=== PATIENT | female | born 1965 | race Caucasian/White ===

== ENCOUNTER 2016-11-09 07:45 | Inpatient (IN) | payer MEDICAID ==
[~2016-11-09] VITALS: Ht 165.1 cm; Wt 89.8 kg
[~2016-11-09 07:45] MED LIST: CIPR-211 PO; DIPH25CA83 PO; FENO145T PO; FURO-149 PO; GLU500 PO; IBUP-1517 PO; INSU100V26; INSU100V9 SQ; LEVO75TA7 PO; LISI-600 PO; METO-290 PO; METR500T PO; SYN75 PO; ZESTRIL PO
[2016-11-09 07:53] VITALS: BP 159/85; PULSE 77; RESP 16; TEMP 98.7; O2SAT 96
--- NOTE | 2016-11-09 07:58 | NUR ---
AMBULATED TO BED 4
--- NOTE | 2016-11-09 07:58 | NUR ---
Pt report received from TRANG Allen. Pt here with c/o lower abd pain x 3 weeks for diverticulitis. Pain more severe this AM. Pt seen 3 weeks ago and received antibiotics that she just finished.
--- NOTE | 2016-11-09 08:05 | NUR ---
Dr. Steven at bedside to assess pt.
[2016-11-09] MEDS ORDERED: NACL 0.9% 1,000 ML IV ONE (08:07)
--- NOTE | 2016-11-09 08:15 | NUR ---
# 22 gauge angiocath placed to LHA. Use of asceptic technique. Opsite placed over site. Blood return noted. Blood for lab drawn from site. Flushed with 10 cc of normal saline. No evidence of infiltration noted. Patient tolerated well.
--- NOTE | 2016-11-09 08:20 | NUR ---
Pt to CT via W/C
--- NOTE | 2016-11-09 08:30 | NUR ---
Pt returns from CT
[2016-11-09 08:53] LABS: BASOPHILS % (AUTO) 0.3 % (0.0-2.0); EOSINOPHILS # (AUTO) 0.1 K/uL (0.0-0.4); HEMATOCRIT 33.6 % (36-48); HEMOGLOBIN 11.2 g/dL (12.0-16.0); LYMPHOCYTES # (AUTO) 1.2 K/uL (1.0-5.5); LYMPHOCYTES % (AUTO) 8.9 % (20.5-51.5); MEAN CORPUSCULAR HEMOGLOBIN 26 pg (27-31); MEAN CORPUSCULAR HGB CONC 33 % (32-36); MEAN CORPUSCULAR VOLUME 79 fL (79.0-98.0); MONOCYTES # (AUTO) 0.8 K/uL (0.0-1.0); MONOCYTES % (AUTO) 5.7 % (1.7-9.3); NEUTROPHILS # (AUTO) 11.2 K/uL (1.8-7.7); NEUTROPHILS % (AUTO) 84.1 % (40.0-70.0); PLATELET COUNT (AUTO) 426 K/uL (130-430); RED BLOOD CELL COUNT(AUTO) 4.26 MIL/uL (4.2-6.2); RED CELL DISTRIBUTION WIDTH 14.6 % (9.0-15.0); WHITE BLOOD COUNT (AUTO) 13.3 K/uL (4.8-10.8)
[2016-11-09 08:54] LABS: BILIRUBIN,URINE NEGATIVE (NEGATIVE); BLOOD, URINE NEGATIVE (NEGATIVE); CLARITY/URINE SL HAZY (CLEAR); COLOR,URINE YELLOW (YELLOW); GLUCOSE,URINE TRACE (NEGATIVE); KETONES,URINE TRACE (NEGATIVE); LEUKOCYTE ESTERASE ,URINE NEGATIVE (NEGATIVE); NITRITE, URINE NEGATIVE (NEGATIVE); PROTEIN URINE 1+ (NEGATIVE); UROBILINOGEN,URINE 0.2 (0.2-1.0)
[2016-11-09 09:06] LABS: CALCIUM 9.2 mg/dL (8.4-11.0); CREATININE 0.65 mg/dL (0.55-1.30); POTASSIUM 3.3 mmol/L (3.5-5.1); PROTHROMBIN TIME 10.9 SECS (9.5-12.5)
[2016-11-09 09:08] LABS: ALBUMIN 3.1 g/dL (3.4-4.8); BACTERIA,URINE RARE /HPF (None Seen); MUCUS,URINE 1+ /LPF (None Seen); RBC,URINE NONE SEEN /HPF (0-3); TOTAL BILIRUBIN 0.4 mg/dL (0.0-1.0); TOTAL PROTEIN, SERUM 7.7 g/dL (6.4-8.3); WBC,URINE 0-3 /HPF (0-3)
[2016-11-09] MEDS ORDERED: ONDANSETRON HCL 4 MG/2 ML VIAL IVP ONE (09:30)
[2016-11-09] MEDS ORDERED: PIPERACILLIN/TAZO 3.375 GM in NS 50 ML IV ONE (09:30)
[2016-11-09] MEDS ORDERED: HYDROmorphone 1 MG INJ. 1 MG/ML AMPUL IVP ONE (09:30)
[2016-11-09] MEDS ORDERED: KETOROLAC TROMETHAMINE 15 MG VIAL IVP ONE (09:30)
--- NOTE | 2016-11-09 09:30 | NUR ---
Pt c/o abdominal pain 07/25. Dr. Steven notified, pt to be medicated.
[2016-11-09] MEDS ORDERED: FURO-149 PO (09:33)
[2016-11-09] MEDS ORDERED: METO-290 PO (09:33)
[2016-11-09] MEDS ORDERED: PRO40 PO (09:33)
[2016-11-09] MEDS ORDERED: METF1000 PO (09:33)
[2016-11-09] MEDS ORDERED: FENO48TA2 PO (09:33)
--- NOTE | 2016-11-09 09:34 | NUR ---
Medication reconciliation completed with information provided by PATIENT. Any prior medication reconciliation on file was reviewed and corrected.
[2016-11-09] MEDS ORDERED: PIPERACILLIN/TAZOBACTAM 3.375 GM/VIAL (ZOSYN) IV ONE (09:43)
--- NOTE | 2016-11-09 09:50 | NUR ---
Patient will be admitted to care of Dr. Forrest. Admitted to Tele unit. Will go to room 100B. Bedside report given to Lesia Jo RN.
--- NOTE | 2016-11-09 10:10 | NUR ---
ADMIT NOTE Received pt from ER to the floor with a diagnosis of Diverticulitis. Admission process initiated. patient oriented to pain management, safety and call light-teach back done.
--- NOTE | 2016-11-09 10:10 | NUR ---
ADMISSION NOTE Received patient from ER via gurney. Patient admitted with diagnosis of Diverticulitis. Patient is awake, alert, oriented X . Patient oriented to hospital room, call light, toileting, pain management and safety-teach back done. Patient informed that I will be her nurse and that their room number is 100B. Personal belongings checked and Belongings List documented. Call light within reach.
--- NOTE | 2016-11-09 10:26 | NUR ---
Consult Order received for a consult with Dr Morrison, spoke with Dr Morrison through medical staff due to phone issues. Will follow up as needed.
[2016-11-09 10:27] VITALS: BP 138/78; PULSE 69; RESP 16; TEMP 97.4; O2SAT 95
[2016-11-09 10:29] VITALS: BP 138/78; PULSE 69; RESP 16; TEMP 97.4; O2SAT 95
[2016-11-09] MEDS ORDERED: DEXTROSE 50% JECT 50 ML DISP.SYRIN IVP PRN (10:30)
[2016-11-09] MEDS ORDERED: MORPHINE 2 MG/ML INJ. SYRINGE IVP PRN (10:30)
[2016-11-09] MEDS ORDERED: ACETAMINOPHEN 325 MG TABLET PO PRN (10:30)
[2016-11-09] MEDS ORDERED: MORPHINE 4 MG/ML INJ. SYRINGE IVP PRN (10:30)
[2016-11-09] MEDS: D5NS 1,000 ML IV SCH (10:55)
[2016-11-09] MEDS ORDERED: PIPERACILLIN/TAZO 3.375/DEX-IS 50 ML IV ONE (11:00)
--- NOTE | 2016-11-09 11:36 | NUR ---
blood sugar: accu check done. 168 mg/dl. patient NPO withheld insulin. will monitor.
--- NOTE | 2016-11-09 13:30 | NUR ---
rounds: pt on bed. M.d. paged to change medication per patient request and waiting to call back.
--- NOTE | 2016-11-09 15:11 | NUR ---
rounds: pt on bed. no distress noted.
[2016-11-09 15:45] VITALS: BP 127/63; PULSE 77; RESP 19; TEMP 97.3; O2SAT 92
--- NOTE | 2016-11-09 15:47 | NUR ---
Luis Enrique called back: Informed about patient's pain med that she is resistant to dilaudid, morphine, fentanyl. Patient wants toradol, norco and motrin. Dr. Forrest said she cannot have oral pain meds due to diverticulitis. Dr. Forrest ordered dilaudid for pain meds. patient refused.
--- NOTE | 2016-11-09 17:06 | NUR ---
blood sugar: accu check done. no insulin needed per sliding scale.
--- NOTE | 2016-11-09 17:07 | NUR ---
pain med: patient states shes in pain but refused dilaudid.
--- NOTE | 2016-11-09 17:30 | NUR ---
Luis Enrique returned call: Informed Dr. Forrest patient refused Dilaudid and prefers Toradol for pain. Luis Enrique ordered Toradol 15mg every 6 hours as needed. Diet clear liquid diet.
[2016-11-09] MEDS ORDERED: KETOROLAC TROMETHAMINE 30 MG VIAL ONE (17:50)
[2016-11-09] MEDS: PIPERACILLIN/TAZO 3.375/DEX-IS 50 ML IV SCH (17:59)
--- NOTE | 2016-11-09 18:00 | NUR ---
rounds: pain meds given thru IVP. Antibiotic administered as scheduled.
--- NOTE | 2016-11-09 19:12 | NUR ---
Initial notes RECVD PT IN BED,A/A/X4 WITH FRIEND @ BEDSIDE.V/S 1151/76,99.3,101,19,94%RA.ALL EXTREMITIES ARE STRONG,BED REST.DISCUSSED PLAN OF CARE WITH PT AND VERBALIZED UNDERSTANDING.CALL LIGHT WITHIN REACH,WILL CONT TO MONITOR.
--- NOTE | 2016-11-09 19:30 | NUR ---
closing notes: pt on bed. complained of coldness and blanket provided. no distress noted. call light within reach. report given at bedside.
[2016-11-09] MEDS: LACTOBACILLUS RHAMNOSUS GG 1 CAP CAPSULE PO SCH (20:57)
[2016-11-09] MEDS: METOCLOPRAMIDE HCL 10 MG TABLET PO SCH (20:57)
--- NOTE | 2016-11-09 21:10 | NUR ---
ROUNDS PT IS SLEEPING @ THIS TIME.NO S/S OF PAIN AND NO SOB NOTED.CALL LIGHT WITHIN REACH,WILL CONT TO MONITOR.
--- NOTE | 2016-11-09 23:10 | NUR ---
ROUNDS PT IS SLEEPING COMFORTABLY.NO S/S OF PAIN AND NO RESPI DISTRESS NOTED.CALL LIGHT WITHIN REACH,WILL CONT TO MONITOR.
[2016-11-10] VITALS (7 sets, daily range): BP systolic 128–170; BP diastolic 59–87; PULSE 60–89; RESP 16–20; TEMP 97.4–98.8; O2SAT 90–95
[2016-11-10] MEDS: KETOROLAC TROMETHAMINE 15 MG VIAL IVP PRN ×4 (00:08→19:55)
[2016-11-10] MEDS: D5NS 1,000 ML IV SCH ×3 (00:10→18:18)
[2016-11-10] MEDS: PIPERACILLIN/TAZO 3.375/DEX-IS 50 ML IV SCH ×4 (00:26→18:17)
[2016-11-10] MEDS: INSULIN REGULAR, HUMAN 100 UNITS/ML, 10 ML VIAL (novoLIN R) SUBCUT PRN ×4 (00:28→18:39)
--- NOTE | 2016-11-10 01:10 | NUR ---
ROUNDS PT IS SLEEPING @ THIS TIME.NO C/OMPAIN AND NO RESPI DISTRESS NOTED.CALL LIGHT WITHIN REACH.WILL CONT TO MONITOR.
--- NOTE | 2016-11-10 03:10 | NUR ---
ROUNDS PT IS SLEEPING AT THIS TIME,NO C/O PAIN AND NO SOB NOTED.CALL LIGHT WITHIN REACH
[2016-11-10] MEDS: LEVOTHYROXINE SODIUM 0.075 MG TABLET PO SCH (06:23)
--- NOTE | 2016-11-10 07:02 | NUR ---
FINAL ROUNDS PT IS SLEEPING @ THIS TIME.NO C/O PAIN ADN NO RESPI DISTRES NOTED.V/S ARE WNL.ALL NEEDS MET AND NATICIPATED BY NOC NURSES.CALL LIGHT WITHIN REACH.WILL ENDORSED.
--- NOTE | 2016-11-10 07:25 | NUR ---
Rn Notes: patient is aaox4. afebrile. vss stable. lungs bilaterally clear. abdomen soft and non distended. has iv access on the left hand #22. D5Ns at 100cc/hr infusing on well. ambulates to the bathroom by himself. on room air. no complained of abdominal pain noted. call lights within reach. safety measures maintained. informed patient to call for assistance.
--- NOTE | 2016-11-10 09:20 | NUR ---
due medcation given as this time.
[2016-11-10] MEDS: METOCLOPRAMIDE HCL 10 MG TABLET PO SCH ×2 (09:32→21:31)
[2016-11-10] MEDS: LACTOBACILLUS RHAMNOSUS GG 1 CAP CAPSULE PO SCH ×2 (09:32→21:30)
[2016-11-10] MEDS: LISINOPRIL 20 MG TABLET PO SCH (09:32)
--- NOTE | 2016-11-10 11:34 | NUR ---
GI CONSULT Spoke with Francisca regarding request for consultation with Dr. Whalen ([phone]) for reason: diverticulitis.
[2016-11-10 11:50] LABS: BASOPHILS % (AUTO) 0.4 % (0.0-2.0); EOSINOPHILS # (AUTO) 0.2 K/uL (0.0-0.4); EOSINOPHILS % (AUTO) 3.1 % (0.0-4.0); HEMATOCRIT 30.2 % (36-48); HEMOGLOBIN 9.7 g/dL (12.0-16.0); LYMPHOCYTES # (AUTO) 1.2 K/uL (1.0-5.5); LYMPHOCYTES % (AUTO) 15.2 % (20.5-51.5); MEAN CORPUSCULAR HEMOGLOBIN 25 pg (27-31); MEAN CORPUSCULAR HGB CONC 32 % (32-36); MEAN CORPUSCULAR VOLUME 79 fL (79.0-98.0); MONOCYTES # (AUTO) 0.8 K/uL (0.0-1.0); MONOCYTES % (AUTO) 10.6 % (1.7-9.3); NEUTROPHILS # (AUTO) 5.4 K/uL (1.8-7.7); NEUTROPHILS % (AUTO) 70.7 % (40.0-70.0); PLATELET COUNT (AUTO) 389 K/uL (130-430); RED BLOOD CELL COUNT(AUTO) 3.81 MIL/uL (4.2-6.2); RED CELL DISTRIBUTION WIDTH 14.5 % (9.0-15.0); WHITE BLOOD COUNT (AUTO) 7.6 K/uL (4.8-10.8)
[2016-11-10 11:54] LABS: CALCIUM 8.8 mg/dL (8.4-11.0); CREATININE 0.61 mg/dL (0.55-1.30); POTASSIUM 3.4 mmol/L (3.5-5.1)
--- NOTE | 2016-11-10 11:57 | NUR ---
zozyn iv given. latest bs is 143mg/dl. no coverage given
[2016-11-10 12:01] LABS: ALBUMIN 2.7 g/dL (3.4-4.8); TOTAL BILIRUBIN 0.3 mg/dL (0.0-1.0); TOTAL PROTEIN, SERUM 6.9 g/dL (6.4-8.3)
--- NOTE | 2016-11-10 12:52 | NUR ---
dr parra called regarding ct of abdomen result informed the results. will come to see the patient.
--- NOTE | 2016-11-10 14:00 | NUR ---
stable. no pain noted. goes to the bathroom
--- NOTE | 2016-11-10 16:43 | NUR ---
patient is stable. watching tv. no pain nor distress noted.
--- NOTE | 2016-11-10 18:00 | NUR ---
latest bs is 176mg/dl. coverage given.
--- NOTE | 2016-11-10 19:25 | NUR ---
sbar report given to incoming nurse Liliane COSTELLO
--- NOTE | 2016-11-10 20:00 | NUR ---
INITIAL NOTES: PATIENT IN BED AWAKE ORIENTED X4,COMPLAINING OF ABDOMINAL PAIN FOR 2HRS. BP SLIGHTLY ELEVATED,EXPLAIN POSSIBLE DUE TO PAIN. IV SITE CLEAR,IVF INFUSING AT 100ML/HR. LUNGS CLEAR. ROOM AIR. OBESE. TOLERATING FLUIDS WELL.CALL LIGHT WITHIN REACH. BED IN LOW POSITION. FALL PRECAUTION EMPHASIZED. WILL MONITOR CLOSELY.
--- NOTE | 2016-11-10 20:10 | NUR ---
pain: complain of abdominal pain. med given. see mar.
--- NOTE | 2016-11-10 20:25 | NUR ---
PAGED PAGED LUCIAN MONROE AT [phone] SPOKE WITH YAYA.
--- NOTE | 2016-11-10 21:00 | NUR ---
DR. CHIRINOS ,NOTIFIED ABOUT PATIENT CONCERN ABOUT PAIN MED EFFECTIVENESS AND NOT ENOUGH, WITH ORDERS.
--- NOTE | 2016-11-10 22:00 | NUR ---
COMFORTABLE THIS TIME. NI DISTRESS.
[2016-11-11] VITALS (7 sets, daily range): BP systolic 132–175; BP diastolic 68–79; PULSE 60–68; RESP 17–20; TEMP 97–99.2; O2SAT 92–96
[2016-11-11] MEDS: PIPERACILLIN/TAZO 3.375/DEX-IS 50 ML IV SCH ×4 (00:35→17:52)
[2016-11-11] MEDS: INSULIN REGULAR, HUMAN 100 UNITS/ML, 10 ML VIAL (novoLIN R) SUBCUT PRN ×4 (00:39→17:31)
--- NOTE | 2016-11-11 00:40 | NUR ---
PAIN: PATIENT COMPLAIN OF ABDOMINAL PAIN/ LEVEL 6/10. NORCO 5/325MG PO GIVEN.
[2016-11-11] MEDS: HYDROcodone/ACETAMIN 5-325 MG TAB (NORCO/ VICODIN) PO PRN ×4 (00:42→20:50)
--- NOTE | 2016-11-11 02:05 | NUR ---
PATIENT RESTING QUITELY WITH EYES CLOSE. BREATHING PATTERN REGULAR. IV BAG CHANGED.
--- NOTE | 2016-11-11 04:10 | NUR ---
CONTINUE TO REST QUITELY. NO DISTRESS.
[2016-11-11] MEDS: D5NS 1,000 ML IV SCH ×2 (06:30→11:08)
--- NOTE | 2016-11-11 06:40 | NUR ---
BLOOD SUGAR 172MG/DL.COVERED W/ 2 UNITS REGULAR INSULIN. COMPLAIN OF ABDOMINAL PAIN. NORCO PO GIVEN. ASSISTED TO BATHROOM TO VOID WITH NO PROBLEM.
[2016-11-11] MEDS: LEVOTHYROXINE SODIUM 0.075 MG TABLET PO SCH (07:32)
--- NOTE | 2016-11-11 07:45 | NUR ---
Initial Note Received pt in bed, no s/s of distress or sob noted, pt has no c/o pain at this time, pt in stable condition, pt aaox4, verbal, iv catheter patent, no signs of infection or infiltration noted. Bed at lowest position, call light within reach, will continue to monitor pt for any changes. Fall precautions in place. Addendum: 11/11/16 at 0946 by Jenni Driver RN pt has pain 2/10 but tolerable at this time
[2016-11-11] MEDS: METOCLOPRAMIDE HCL 10 MG TABLET PO SCH ×2 (08:15→20:47)
[2016-11-11] MEDS: LISINOPRIL 20 MG TABLET PO SCH (08:15)
[2016-11-11] MEDS: LACTOBACILLUS RHAMNOSUS GG 1 CAP CAPSULE PO SCH ×2 (08:15→20:47)
[2016-11-11] MEDS: KETOROLAC TROMETHAMINE 30 MG VIAL IVP PRN ×2 (10:27→19:42)
--- NOTE | 2016-11-11 10:55 | NUR ---
ROUNDS Pt in bed, no s/s of distress or sob noted, pt has no c/o pain at this time, pt in stable condition, pt resting comfortably, will continue to monitor pt for any changes.
[2016-11-11] MEDS ORDERED: COMMUNICATION ORDER XX ONE (12:15)
--- NOTE | 2016-11-11 14:05 | NUR ---
ROUNDS Pt in bed, no s/s of distress or sob noted, pt has pain in lower abd, will administer pain medication as ordered, pt in stable condition, will continue to monitor pt for any changes.
--- NOTE | 2016-11-11 18:25 | NUR ---
CLOSING NOTE Pt in bed, no s/s of distress or sob noted, pt has no c/o pain at this time, pt in stable condition, pt aaox4, verbal, iv catheter patent, no signs of infection or infiltration noted. Bed at lowest position, call light within reach, will endorse care of pt to incoming nurse. Fall precautions in place.
--- NOTE | 2016-11-11 19:00 | NUR ---
INITIAL NOTES RECVD PT IN BED,A/A/X4.V/S 159/79,98.0,68,18,95%RA.IV NOTED TO L HAND G22,NO INFILTRATE WUTHN GOOD BLOOD RETURN.ALL EXTREMITIES ARE STRONG,BRP.DISCUSSED PLAN OF CARE WITH PT AND VERBALIZED UNDERSTANDING.CALL LIGHT WITHIN REACH,WILL CONT TO MONITOR.
--- NOTE | 2016-11-11 21:00 | NUR ---
ROUNDS PT IS AWAKE WATCHING TV @ THIS TIME.NO C/O PAIN AND NO SOB NOTED.CALL LIGHT WITHIN REACH,WILL CONT TO MONITOR.
--- NOTE | 2016-11-11 23:00 | NUR ---
ROUNDS PT IS SLEEPING @ THIS TIME.NO S/S OF PAIN AND NO RESPI DISTRESS NOTED.CALL LIGHT WITHIN REACH,WILL CONT TO MONITOR.
[2016-11-12] MEDS: PIPERACILLIN/TAZO 3.375/DEX-IS 50 ML IV SCH ×5 (00:35→23:06)
[2016-11-12] MEDS: D5NS 1,000 ML IV SCH ×3 (00:39→17:28)
--- NOTE | 2016-11-12 01:00 | NUR ---
ROUNDS PT IS SLEEPING COMFORTABLY @ THIS TIME.NO S/S OF PAIN AND NO RESPI DISTRESS NOTED.CALL LIGHT WITHIN REACH,WILL CONT TO MONITOR.
[2016-11-12] MEDS: KETOROLAC TROMETHAMINE 30 MG VIAL IVP PRN ×4 (01:26→23:07)
[2016-11-12] MEDS: INSULIN REGULAR, HUMAN 100 UNITS/ML, 10 ML VIAL (novoLIN R) SUBCUT PRN ×4 (01:32→23:15)
--- NOTE | 2016-11-12 02:00 | NUR ---
ADMIN TORADOL FOR GENERALIZED PAIN PRN.WILL REASSESS AFTER 1HOUR.
--- NOTE | 2016-11-12 02:00 | NUR ---
ROUNDS PT IS SLEEPING COMFORTABLY @ THIS TIME.NO C/O PAIN AND NO RESPI DISTRESS NOTED.CALL LIGHT WITHIN REACH,WILL CONT TO MONITOR.
--- NOTE | 2016-11-12 04:00 | NUR ---
ROUNDS PT IS SLEEPING COMFORTABLY.NO S/S OF PAIN OR DISTRESS @ THIS TIME.CALL LIGHT WITHIN REACH,WILL CONT TO MONITOR.
[2016-11-12] MEDS: HYDROcodone/ACETAMIN 5-325 MG TAB (NORCO/ VICODIN) PO PRN ×3 (05:36→19:59)
[2016-11-12 06:03] VITALS: BP 157/68; PULSE 60; RESP 16; TEMP 97.2; O2SAT 93
[2016-11-12] MEDS: LEVOTHYROXINE SODIUM 0.075 MG TABLET PO SCH (06:10)
--- NOTE | 2016-11-12 07:00 | NUR ---
FINAL NOTES PT IS SLEEPING @ THIS TIME.NO C/O PAIN AND NO DISTRESS NOTED.V/S ARE WNL.ALL NEEDS MET AND ANTICIPATED BY NOC NURSES.CALL LIGHT WITHIN REACH,WILL CONT TO MONITOR.
[2016-11-12 07:33] VITALS: BP 170/76; PULSE 63; RESP 16; TEMP 98.3; O2SAT 94
--- NOTE | 2016-11-12 07:50 | NUR ---
INITIAL NOTES RECEIVED PATIENT ON BED ASLEEP.BREATHING EVEN AND UNLABORED.NO ACUTE DISTRESS.IVF INFUSING WELL;NO SIGNS AND SYMPTOMS OF INFILTRATION.SAFETY AND FALL PRECAUTIONS IN PLACE.CALL LIGHT WITHIN REACH
--- NOTE | 2016-11-12 08:12 | NUR ---
Consult was called Re : Diverticulitis spoke with Ashley from Dr Whalen exchange Dr Patel is radiation oncology nurse for Dr Whalen .
[2016-11-12] MEDS: METOCLOPRAMIDE HCL 10 MG TABLET PO SCH ×2 (08:37→20:08)
[2016-11-12] MEDS: LACTOBACILLUS RHAMNOSUS GG 1 CAP CAPSULE PO SCH ×2 (08:37→19:59)
[2016-11-12] MEDS: LISINOPRIL 20 MG TABLET PO SCH (08:38)
--- NOTE | 2016-11-12 09:22 | NUR ---
CM DC PLANNING: RE: TRANSFER [facility] C/T [facility] INTAKE: [phone]; S/W EMILY WHO IS NOT SURE WHY Pt IS BEING REFERRED IF THE LAST DOCUMENTED EMESIS WAS OVER 24 HOURS AGO (0025 ON 11/11) AND BECAUSE SHE NEEDS TO F/UP WITH INVERFORM MACHINE OPERATOR MD AT [facility]. PER THIS DONNA/LIEN ASSESSMENT, Pt COULD LIKELY HAVE INVERFORM MACHINE OPERATOR F/UP OUT-Pt SHE IS S/P HYSTERECTOMY (PER SW NOTE) AND HER CURRENT MEDICAL CONDITION IS VOMITING, HEMATASIS (question? related to oral chemo). THIS DONNA/LIEN REVIEWED with EMILY, LEVEL OF CARE/MED-SURG BED NEEDED as downgraded on 11/08/16, WHICH SOUNDED LIKE THERE MAY POSSIBLY BE ISO BED AVAILABLE ONCE NEED TO TRANSFER IS RE-CLARIFIED W/DR. WEST TODAY NOTED Pt HAD SEPTIC WORK-UP DONE ON 11/11/16, POSSIBLY DUE TO FEVER (T-MAX 101 AT 1843). Addendum: 11/12/16 at 0957 by Lien Quintana RN DISREGARD NOTE ABOVE; ENTERED INCORRECTLY ON THIS FILE; MEANT FOR ANOTHER Pt.
--- NOTE | 2016-11-12 09:25 | NUR ---
DISREGARD NOTE BELOW; BELONGS TO DIFFERENT Pt.
--- NOTE | 2016-11-12 10:55 | NUR ---
IV NOTES IV SITE LEAKING;CHECKED AND ASSESSED SITE;WITH SLIGHT SWELLING;NO REDNESS;NO COMPLAIN OF PAIN.REMOVED IV CATHETER;APPLIED PRESSURE DRESSING.RE-INSERTED TO THE SAME ARM REQUESTED BY PATIENT;SUCCESSFUL WITH SECOND ATTEMPT;WITH GOOD BLOOD RETURN;NO RESISTANCE WHEN FLUSHED WITH NORMAL SALINE.IVF CONTINUED;INFUSING WELL
[2016-11-12] MEDS: IBUPROFEN 400 MG TABLET PO PRN (11:41)
[2016-11-12 12:00] VITALS: BP 163/73; PULSE 103; RESP 21; TEMP 101.7; O2SAT 96
--- NOTE | 2016-11-12 13:00 | NUR ---
NOTES CHECKED PATIENT;NEEDS ATTENDED TO
--- NOTE | 2016-11-12 15:30 | NUR ---
NOTES CHECKED PATIENT.NO ACUTE DISTRESS
[2016-11-12 16:00] VITALS: BP 166/73; PULSE 74; RESP 21; TEMP 99.3
--- NOTE | 2016-11-12 18:30 | NUR ---
CLOSING NOTES PATIENT ON BED AWAKE WATCHING T.V.BREATHING EVEN AND UNLABORED.NO ACUTE DISTRESS.IVF INFUSING WELL;NO SIGNS AND SYMPTOMS OF INFILTRATION.SAFETY AND FALL PRECAUTIONS IN PLACE.CALL LIGHT WITHIN REACH.WILL ENDORSE TO NEXT SHIFT ACCORDINGLY
[2016-11-12 19:00] VITALS: BP 146/89; PULSE 73; RESP 18; TEMP 99.5; O2SAT 95
--- NOTE | 2016-11-12 19:00 | NUR ---
INITIAL NOTES RECVD PT IN BED,A/A/X4.V/S 149/59,99.5,79,18,94%RA.IV NOTED TO L HAND G22,NO INFILTRATE WITH GOOD BLOOD RETURN.ALL EXTREMITIES ARE STRONG,BRP.DISCUSSED PLAN OF CARE WITH PT AND VERBALIZED UNDERSTANDING.CALL LIGHT WITHIN REACH,WILL CONT TO MONITOR.
[2016-11-12] MEDS: METOCLOPRAMIDE HCL 10 MG/2 ML VIAL IVP PRN ×2 (19:59→20:01)
--- NOTE | 2016-11-12 20:15 | NUR ---
ADMIN NORCO FOR GEN PAIN.WILL REASSESS AFTER 1HOUR
--- NOTE | 2016-11-13 | NUR ---
ADMIN TORADOL FOR GEN PAIN,WILL REASSESS AFTER 1 HOUR.
[2016-11-13 00:06] VITALS: BP 171/69; PULSE 64; RESP 19; TEMP 96.7; O2SAT 91
[2016-11-13] MEDS: cloNIDine HCL 0.1 MG TABLET PO PRN (01:28)
[2016-11-13] MEDS: HYDROcodone/ACETAMIN 5-325 MG TAB (NORCO/ VICODIN) PO PRN ×5 (01:29→23:36)
--- NOTE | 2016-11-13 02:00 | NUR ---
ROUNDS PT IS SLEEPING @ THIS TIME.NO C/O PAIN AND NO SOB NOTED.CALL LIGHT WITHIN REACH,WILL CONT TO MONITOR.
--- NOTE | 2016-11-13 02:20 | NUR ---
ADMIN MOTRIN FOR 100.3 TEMP.PT REFUSED TYLENOL AND PREFER MOTRIN.WILL RECHECK TEMP AFTER 1 HOUR.
[2016-11-13] MEDS: IBUPROFEN 400 MG TABLET PO PRN (03:01)
--- NOTE | 2016-11-13 04:00 | NUR ---
ROUNDS PT IS SLEEPING @ THIS TIME.NO C/O PAIN AND NO SOB NOTED.CALL LIGHT WITHIN REACH,WILL CONT TO MONITOR.
[2016-11-13 04:09] VITALS: BP 155/72; PULSE 94; RESP 17; TEMP 100.3; O2SAT 93
[2016-11-13] MEDS: PIPERACILLIN/TAZO 3.375/DEX-IS 50 ML IV SCH ×4 (05:21→23:36)
[2016-11-13] MEDS: INSULIN REGULAR, HUMAN 100 UNITS/ML, 10 ML VIAL (novoLIN R) SUBCUT PRN ×2 (05:26→17:14)
[2016-11-13] MEDS: D5NS 1,000 ML IV SCH ×3 (05:32→20:17)
[2016-11-13] MEDS: LEVOTHYROXINE SODIUM 0.075 MG TABLET PO SCH (06:03)
[2016-11-13 06:53] LABS: BASOPHILS # (AUTO) 0.1 K/uL (0.0-0.2); BASOPHILS % (AUTO) 0.6 % (0.0-2.0); EOSINOPHILS % (AUTO) 0.2 % (0.0-4.0); HEMATOCRIT 28.6 % (36-48); HEMOGLOBIN 9.3 g/dL (12.0-16.0); LYMPHOCYTES # (AUTO) 0.6 K/uL (1.0-5.5); LYMPHOCYTES % (AUTO) 4.3 % (20.5-51.5); MEAN CORPUSCULAR HEMOGLOBIN 26 pg (27-31); MEAN CORPUSCULAR HGB CONC 33 % (32-36); MEAN CORPUSCULAR VOLUME 78 fL (79.0-98.0); MONOCYTES % (AUTO) 6.9 % (1.7-9.3); NEUTROPHILS # (AUTO) 12.5 K/uL (1.8-7.7); PLATELET COUNT (AUTO) 370 K/uL (130-430); RED BLOOD CELL COUNT(AUTO) 3.66 MIL/uL (4.2-6.2); RED CELL DISTRIBUTION WIDTH 14.5 % (9.0-15.0)
--- NOTE | 2016-11-13 06:59 | NUR ---
FINAL NOTES PT IS SLEEPING @ THIS TIME.NO C/O PAIN AND NO DISTRESS NOTED.V/S ARE WNL.ALL NEEDS MET AND ANTICIPATED BY NOC NURSES.CALL LIGHT WITHIN REACH,WILL ENDORES.
[2016-11-13 07:30] LABS: WHITE BLOOD COUNT (AUTO) 14.2 K/uL (4.8-10.8)
[2016-11-13] MEDS: KETOROLAC TROMETHAMINE 30 MG VIAL IVP PRN ×3 (07:39→20:09)
[2016-11-13 07:42] VITALS: BP 118/61; PULSE 74; RESP 18; TEMP 97; O2SAT 95
--- NOTE | 2016-11-13 07:47 | NUR ---
INITIAL NOTES RECEIVED PATIENT ON BED AWAKE COMPLAINING OF SEVERE PAIN TO ABDOMEN.BREATHING EVEN AND UNLABORED.IVF INFUSING WELL;SITE SLIGHTLY SWOLLEN;NO DISCOMFORT ON THE SITE;NO REDNESS BUT PATIENT REFUSED TO RE-INSERT IV CATH AT THIS TIME.SAFETY AND FALL PRECAUTIONS IN PLACE.CALL LIGHT WITHIN REACH
[2016-11-13] MEDS: LISINOPRIL 20 MG TABLET PO SCH (08:59)
[2016-11-13] MEDS: METOCLOPRAMIDE HCL 10 MG TABLET PO SCH ×2 (08:59→20:09)
[2016-11-13] MEDS: LACTOBACILLUS RHAMNOSUS GG 1 CAP CAPSULE PO SCH ×2 (09:00→20:09)
[2016-11-13] MEDS ORDERED: MAGNESIUM CITRATE 300 ML ORAL SOLUTION PO ONE (09:15)
[2016-11-13 10:13] LABS: ALBUMIN 2.4 g/dL (3.4-4.8); TOTAL BILIRUBIN 0.4 mg/dL (0.0-1.0)
--- NOTE | 2016-11-13 10:30 | NUR ---
NOTES CHECKED PATIENT;NO ACUTE DISTRESS.NEEDS ATTENDED TO
[2016-11-13] MEDS: NEOMYCIN SULFATE 500 MG TABLET PO SCH ×3 (11:39→23:35)
[2016-11-13 11:47] LABS: CALCIUM 8.6 mg/dL (8.4-11.0); CREATININE 0.76 mg/dL (0.55-1.30); TOTAL PROTEIN, SERUM 6.5 g/dL (6.4-8.3)
[2016-11-13 12:00] VITALS: BP 147/78; PULSE 68; RESP 21; TEMP 96.7; O2SAT 96
--- NOTE | 2016-11-13 12:22 | NUR ---
NOTES K LEVEL=2.7.CHECKED AND ASSESSED PATIENT;NO SIGNS AND SYMPTOMS OF HYPOKALEMIA.
[2016-11-13 12:23] LABS: POTASSIUM 2.9 mmol/L (3.5-5.1)
--- NOTE | 2016-11-13 15:10 | NUR ---
NOTES RECEIVED ORDER FROM DR. VASQUEZ FOR K-DUR 40 MEQ PO X1 AND KCL 40 MEQ IV X1,BMP IN AM;CARRIED OUT
[2016-11-13] MEDS ORDERED: KCL 40 mEq in 100 mL (PREMIX) 100 ML IV ONE (15:15)
[2016-11-13] MEDS ORDERED: POTASSIUM CHLORIDE 20 MEQ TAB.PRT.SR PO ONE (15:15)
[2016-11-13 16:00] VITALS: BP 143/90; PULSE 85; RESP 21; TEMP 99.4; O2SAT 93
--- NOTE | 2016-11-13 16:30 | NUR ---
NOTES IV SITE SWOLLEN WITH DISCOMFORTS;REMOVED IV CATHETER.RE-INSERTED IV CATHETER TO LEFT FOREARM;SUCCESSFUL WITH SECOND ATTEMPT;WITH GOOD BLOOD RETURN;PROCEDURE TOLERATED WELL
[2016-11-13 19:50] VITALS: BP 155/68; PULSE 85; RESP 20; TEMP 98.7; O2SAT 94
--- NOTE | 2016-11-13 19:50 | NUR ---
INITIAL NOTES; Pt is a/ox4, resting in bed. Vital signs 98.7,20, 85, 155/68,U2PAM=34% R/A. Pt denies any pain,sob,or any acute distress this time. Lung sounds clear throughout all lobes. Abdomen soft & distended, bs present. IV site of left f/a patent, no s/s any infiltration noted. K-Aron is infusing. IVF D5NS @ 100ml/hr. Jerson lower pedis present upon palp. All safety measures in place. Fall precaution in place. All safety measures in place. Discussed poc, NPO status after midnight for colon resection with anastomesis possible diverting ileostomy unknown schedule time for 11/14/16, all safety measures, or if experiencing chest pain, pain,sob, or any acute distress to use call light for assistance, pt verbalized understanding. Call light w/in reach. Continue to monitor pt.
--- NOTE | 2016-11-13 22:16 | NUR ---
ROUNDS; Pt is resting in bed. Pt denies any pain,sob,or any acute distress this time. IV site of left f/a patent, no s/s any infiltration noted. K-Aron completed. IVF D5NS @ 100ml/hr. All safety measures in place. Fall precaution in place. All safety measures in place. Call light w/in reach. Continue to monitor pt.
--- NOTE | 2016-11-13 23:35 | NUR ---
ROUNDS; PAIN MEDICATION ADMINISTERED Pt is c/o abdominal pain, gave [place] 5/325mg po for pain. IV site of left f/a patent, no s/s any infiltration noted. IVF D5NS @ 100ml/hr. All safety measures in place. Fall precaution in place. All safety measures in place. Call light w/in reach. Continue to monitor pt.
--- NOTE | 2016-11-13 23:55 | NUR ---
PAGED DR VASQUEZ ([facility] [phone]), LISA LEDEZMA.
--- NOTE | 2016-11-14 | NUR ---
NPO STATUS; KEEP PT NPO AFTER MIDNIGHT FOR COLON RESECTION W/ ANASTOMESIS POSSIBLE DIVERTING ILOEOSTOMY SURGERY -Reminded pt to be NPO after midnight and removed all food and fluid away from patient, pt verbalized understanding. IV site of left f/a patent, no s/s any infiltration noted. IVF D5NS @ 100ml/hr. All safety measures in place. Fall precaution in place. All safety measures in place. Call light w/in reach. Continue to monitor pt.
--- NOTE | 2016-11-14 00:26 | NUR ---
second page for Dr Henry, dialed . s/w Odin.
--- NOTE | 2016-11-14 00:35 | NUR ---
NOTIFIED AND ASKED DR. HENRY REGARDING PAIN MEDICATION -Notified Dr. Henry that pt is NPO now and can't get PO [place] and she usually takes Toradol IVP and [place] both for pain mgmt since pt will have surgery tomorrow and informed Dr. Henry that pt requested Demerol for pain mgmt, MD refused and won't prescribed this time. stated that it's okay to take [place] po for pain with sip of water. All safety measures in place. Call light w/in reach. Continue to monitor pt.
--- NOTE | 2016-11-14 00:36 | NUR ---
INFORMED PT THAT DR. VASQUEZ WON'T ORDER DEMEROL AND ORDERED TO HAVE NORCO WITH SIP OF WATER, PT VERBALIZED UNDERSTANDING.
[2016-11-14 01:30] VITALS: BP 136/63; PULSE 86; RESP 18; TEMP 97.8; O2SAT 92
--- NOTE | 2016-11-14 04:01 | NUR ---
ROUNDS; Pt is resting in bed. No s/s any pain,sob,or any acute distress noted. IV site of left f/a patent, no s/s any infiltration noted. IVF D5NS @ 100ml/hr. All safety measures in place. Fall precaution in place. All safety measures in place. Call light w/in reach. Continue to monitor pt.
[2016-11-14] MEDS: KETOROLAC TROMETHAMINE 30 MG VIAL IVP PRN ×2 (04:32→20:05)
[2016-11-14 04:36] VITALS: BP 168/89; PULSE 90; RESP 20; TEMP 98.6; O2SAT 93
[2016-11-14] MEDS: PIPERACILLIN/TAZO 3.375/DEX-IS 50 ML IV SCH ×3 (05:16→18:28)
[2016-11-14] MEDS: HYDROcodone/ACETAMIN 5-325 MG TAB (NORCO/ VICODIN) PO PRN ×3 (05:26→18:30)
--- NOTE | 2016-11-14 05:26 | NUR ---
ROUNDS; PAIN MEDICATION ADMINISTERED Pt is c/o abdominal pain, gave [place] with sip of water. IV site of left f/a patent, no s/s any infiltration noted. IVF D5NS @ 100ml/hr. All safety measures in place. Fall precaution in place. All safety measures in place. Call light w/in reach. Continue to monitor pt.
[2016-11-14] MEDS: NEOMYCIN SULFATE 500 MG TABLET PO SCH ×3 (05:29→18:00)
[2016-11-14] MEDS: LEVOTHYROXINE SODIUM 0.075 MG TABLET PO SCH (05:29)
--- NOTE | 2016-11-14 06:50 | NUR ---
CLOSING NOTES; Pt is resting in bed. Pt denies any pain,sob,or any acute distress this time. IV site of left f/a patent, no s/s any infiltration noted. IVF D5NS @ 100ml/hr. All safety measures in place. Fall precaution in place. All safety measures in place. Call light w/in reach.
[2016-11-14 07:40] VITALS: BP 144/71; PULSE 82; RESP 16; TEMP 96.9; O2SAT 92
--- NOTE | 2016-11-14 07:40 | NUR ---
INITIAL ROUNDS Received pt AAOx4, no s/s resp distress, no c/o pain or discomfort. Plan of care for the day reviewed with pt-pt verbalized her understanding of surgery today. IVF infusing well to left arm at ordered rate with no s/s infiltration to site. Pain management, disease process, pre-op education, skin and safety discussed-teach back done. Contact phone number explained, call light within reach.
[2016-11-14] MEDS: METOCLOPRAMIDE HCL 10 MG TABLET PO SCH ×2 (09:00→20:05)
[2016-11-14] MEDS: LISINOPRIL 20 MG TABLET PO SCH (09:00)
[2016-11-14] MEDS: LACTOBACILLUS RHAMNOSUS GG 1 CAP CAPSULE PO SCH (09:00)
--- NOTE | 2016-11-14 09:55 | NUR ---
ROUNDS/PAIN Pt c/o pain to low abd-pt given pain medication as ordered by MD. Pt repositioned herself for comfort. Needs met, call light within reach.
[2016-11-14 10:07] LABS: BASOPHILS % (AUTO) 0.4 % (0.0-2.0); EOSINOPHILS # (AUTO) 0.1 K/uL (0.0-0.4); EOSINOPHILS % (AUTO) 1.6 % (0.0-4.0); HEMATOCRIT 26.9 % (36-48); HEMOGLOBIN 8.6 g/dL (12.0-16.0); LYMPHOCYTES # (AUTO) 0.8 K/uL (1.0-5.5); MEAN CORPUSCULAR HEMOGLOBIN 25 pg (27-31); MEAN CORPUSCULAR HGB CONC 32 % (32-36); MEAN CORPUSCULAR VOLUME 78 fL (79.0-98.0); MONOCYTES # (AUTO) 0.6 K/uL (0.0-1.0); MONOCYTES % (AUTO) 7.7 % (1.7-9.3); NEUTROPHILS % (AUTO) 80.3 % (40.0-70.0); PLATELET COUNT (AUTO) 317 K/uL (130-430); RED BLOOD CELL COUNT(AUTO) 3.44 MIL/uL (4.2-6.2); RED CELL DISTRIBUTION WIDTH 14.4 % (9.0-15.0); WHITE BLOOD COUNT (AUTO) 7.5 K/uL (4.8-10.8)
[2016-11-14 10:16] LABS: CALCIUM 8.5 mg/dL (8.4-11.0); CREATININE 0.63 mg/dL (0.55-1.30)
[2016-11-14 10:21] LABS: ALBUMIN 2.2 g/dL (3.4-4.8); TOTAL BILIRUBIN 0.3 mg/dL (0.0-1.0); TOTAL PROTEIN, SERUM 6.1 g/dL (6.4-8.3)
[2016-11-14 10:24] LABS: POTASSIUM 2.9 mmol/L (3.5-5.1)
[2016-11-14] MEDS ORDERED: POTASSIUM CHLORIDE 40 MEQ in NS 250 ML IV ONE (10:45)
[2016-11-14] MEDS: D5NS 1,000 ML IV SCH ×2 (11:26→18:29)
[2016-11-14 11:39] VITALS: BP 106/49; PULSE 65; RESP 19; TEMP 98.3; O2SAT 92
--- NOTE | 2016-11-14 11:45 | NUR ---
CHG BATH GIVEN.
[2016-11-14 12:48] VITALS: Ht 165.1 cm; Wt 89.8 kg
--- NOTE | 2016-11-14 13:51 | NUR ---
CONS FOR DR MG PERKINS FOR DIVERTICULITIS
[2016-11-14] MEDS ORDERED: ONDANSETRON HCL 4 MG/2 ML VIAL IVP ONE (14:00)
[2016-11-14] MEDS ORDERED: LR 1,000 ML IV.SOLN IV ONE (14:00)
[2016-11-14] MEDS ORDERED: MIDAZOLAM HCL 5 MG/5 ML VIAL IVP ONE (14:00)
[2016-11-14] MEDS ORDERED: SEVOFLURANE 15 MIN GAS INH ONE (14:00)
[2016-11-14] MEDS ORDERED: PROPOFOL 200MG/ 20ML VIAL (DIPRIVAN) IV ONE (14:00)
[2016-11-14] MEDS ORDERED: MEPERIDINE HCL/PF 100 MG/ML AMP IM ONE (14:00)
--- NOTE | 2016-11-14 14:00 | NUR ---
TO OR Pt left floor via bed to OR in no distress. OR checklist completed, K-Aron infusing well to LFA at ordered rate with no s/s infiltration to site.
[2016-11-14 14:05] LABS: INR 1.2 (0.8-1.2); PROTHROMBIN TIME 13.1 SECS (9.5-12.5)
[2016-11-14] MEDS ORDERED: MEPERIDINE HCL/PF 50 MG/ML AMP ONE ×2 (14:34→16:44)
[2016-11-14] MEDS ORDERED: LR 1,000 ML IV SCH (15:22)
[2016-11-14] MEDS ORDERED: MEPERIDINE HCL/PF 25 MG/ML DISP.SYRIN IVP PRN (15:30)
[2016-11-14] MEDS ORDERED: MEPERIDINE HCL/PF 50 MG/ML AMP IVP PRN ×2 (15:30)
[2016-11-14] MEDS ORDERED: MEPERIDINE HCL/PF 100 MG/ML AMP IM PRN (16:00)
--- NOTE | 2016-11-14 17:01 | NUR ---
PT BACK FROM OR Received report from COMPLIANCE REVIEW SPECIALIST, pt AAOx4, no s/s resp distress, no c/o pain or discomfort. Pt with dressing to midline abd and to RLQ-noted KEY drain with light red drainage noted. Noted new colostomy to left abd, stoma pink, no drainage noted. Pt on LR at ordered rate to right wrist with no s/s infiltration to site. Pt's vital signs stable. BLE with SCDs in place. Pt's family at bedside. Call light within reach.
[2016-11-14 17:10] VITALS: BP 152/70; PULSE 75; RESP 19; TEMP 97.8; O2SAT 92
--- NOTE | 2016-11-14 18:45 | NUR ---
CLOSING NOTE Pt resting quietly in bed with no s/s resp distress, pain medication given for c/o pain. Pt given fresh cup of ice chips. IVF infusing well to right wrist at ordered rate with no s/s infiltration to site. Pt not given Insulin per sliding scale due to NPO status and D5NS IVF just restarted. Needs met, call light within reach.
[2016-11-14 19:20] VITALS: BP 162/75; PULSE 79; RESP 18; TEMP 97.3; O2SAT 92
--- NOTE | 2016-11-14 19:20 | NUR ---
INITIAL NOTES; INCENTIVE SPIROMETRY TEACHING -TEACHING PT HOW TO USE INCENTIVE SPIROMETRY 10X/HR WHILE AWAKE, PT DEMONSTRATING AND GOOD TEACHING BACK. PT STATED, '' I HAD USED THIS INCENTIVE SPIROMETRY BEFORE.'' Pt is a/ox4, resting in bed. Vital signs 97.3,18, 79, 162/75,T1BHI=83% R/A. Pt denies any pain,sob,or any acute distress this time. Lung sounds clear throughout all lobes. Abdomen soft & distended, bs present. IV site of wrist #18, patent, no s/s any infiltration noted. IVF D5NS @ 100ml/hr. Colostomy-left lower abdomen-no drainage noted. KEY x1 rt side of lower abomen-drains pink drainage. [place] cath w/ gravity drains yellow urine output. Jerson lower pedis present upon palp. SCD jerson lower extremities. Fall precaution in place. All safety measures in place. Discussed poc, all safety measures, or if experiencing chest pain, pain,sob, or any acute distress to use call light for assistance, pt verbalized understanding. Call light w/in reach. Continue to monitor pt.
--- NOTE | 2016-11-14 20:05 | NUR ---
PAIN MEDICATION ADMINISTERED -Pt is c/o abdominal pain, gave Toradol 30mg IVP. Call light /win reach. Continue to monitor pt.
[2016-11-15] MEDS: PIPERACILLIN/TAZO 3.375/DEX-IS 50 ML IV SCH ×5 (00:06→23:06)
[2016-11-15] MEDS: NEOMYCIN SULFATE 500 MG TABLET PO SCH ×5 (00:06→23:06)
[2016-11-15] MEDS: HYDROcodone/ACETAMIN 5-325 MG TAB (NORCO/ VICODIN) PO PRN ×3 (00:11→21:00)
--- NOTE | 2016-11-15 00:11 | NUR ---
ROUNDS; PAIN MEDICATION ADMINISTERED Pt is c/o abdominal pain, gave [place] 5-325 mg po with sips of water. IV site of left f/a patent, no s/s any infiltration noted. KEY X1 in place drains pink drainage. Colostomy in place -no drainage noted. IVF D5NS @ 100ml/hr. All safety measures in place. Fall precaution in place. All safety measures in place. Call light w/in reach. Continue to monitor pt.
[2016-11-15] MEDS: INSULIN REGULAR, HUMAN 100 UNITS/ML, 10 ML VIAL (novoLIN R) SUBCUT PRN ×2 (00:15→11:16)
[2016-11-15 00:52] VITALS: BP 156/78; PULSE 77; RESP 16; TEMP 98.4; O2SAT 92
--- NOTE | 2016-11-15 02:06 | NUR ---
ROUNDS; Pt is resting in bed. No s/s any pain or acute distress noted. All safety measures in place. Fall precaution in place. All safety measures in place. Call light w/in reach. Continue to monitor pt.
[2016-11-15] MEDS: KETOROLAC TROMETHAMINE 30 MG VIAL IVP PRN ×2 (02:33→08:36)
--- NOTE | 2016-11-15 02:33 | NUR ---
PAIN MEDICATION ADMINISTERED -Pt is c/o abdominal pain, gave Toradol 30mg IVP. Call light /win reach. Continue to monitor pt.
[2016-11-15 04:19] VITALS: BP 152/74; PULSE 88; RESP 16; TEMP 98.2; O2SAT 93
[2016-11-15] MEDS: D5NS 1,000 ML IV SCH ×3 (06:04→20:59)
[2016-11-15] MEDS: LEVOTHYROXINE SODIUM 0.075 MG TABLET PO SCH (06:07)
--- NOTE | 2016-11-15 06:59 | NUR ---
CLOSING NOTES; Pt is resting in bed. Pt denies any pain,sob,or any acute distress this time. Colostomy-pink moist round,no drainage in place of left side of lower abdomen. KEY x1 drains pink output 55ml entire shift. IV site of left f/a patent, no s/s any infiltration noted. IVF D5NS @ 100ml/hr. Fall precaution in place. All safety measures in place. Call light w/in reach.
--- NOTE | 2016-11-15 07:45 | NUR ---
AM ROUNDS PATIENT RESTING IN BED, AWAKE, ALERT AND ORIENTED X4, STATES MILD PAIN LEVEL AT THIS TIME, EDUCATED THE PATIENT ON PAIN MANAGEMENT AT THIS TIME, PATIENT VERBALIZED UNDERSTANDING, ASSESSMENT COMPLETE, LEFT ABDOMEN HAS COLOSTOMY WITH NO DRAINAGE, RIGHT ABDOMEN KEY DRAIN WITH MINIMAL DRAINAGE AT THIS TIME, WILL CONTINUE TO MONITOR, EDUCATED THE PATIENT DOWEL SETTING MACHINE OPERATOR LIGHT SYSTEM AND TO CALL FOR ANY ASSISTANCE, PATIENT VERBALIZED UNDERSTANDING AT THIS TIME, CALL LIGHT PLACED IN THE PATIENT'S HAND, TWO SIDE RAILS UP, PATIENT IS ON A NON ALARM BED, WILL ENCOURAGE THE PATIENT TO WALK AND WILL EVALUATE GAIT, NO OTHER NEEDS AT THIS TIME, BED IN LOWEST POSITION, FALL PRECAUTIONS IN PLACE.
[2016-11-15 07:47] LABS: BASOPHILS % (AUTO) 0.3 % (0.0-2.0); EOSINOPHILS # (AUTO) 0.2 K/uL (0.0-0.4); EOSINOPHILS % (AUTO) 2.6 % (0.0-4.0); HEMATOCRIT 26.8 % (36-48); HEMOGLOBIN 8.6 g/dL (12.0-16.0); LYMPHOCYTES # (AUTO) 1.1 K/uL (1.0-5.5); LYMPHOCYTES % (AUTO) 13.4 % (20.5-51.5); MEAN CORPUSCULAR HEMOGLOBIN 26 pg (27-31); MEAN CORPUSCULAR HGB CONC 32 % (32-36); MEAN CORPUSCULAR VOLUME 79 fL (79.0-98.0); MONOCYTES # (AUTO) 0.5 K/uL (0.0-1.0); MONOCYTES % (AUTO) 6.7 % (1.7-9.3); NEUTROPHILS # (AUTO) 6.3 K/uL (1.8-7.7); PLATELET COUNT (AUTO) 298 K/uL (130-430); RED BLOOD CELL COUNT(AUTO) 3.38 MIL/uL (4.2-6.2); RED CELL DISTRIBUTION WIDTH 14.8 % (9.0-15.0); WHITE BLOOD COUNT (AUTO) 8.1 K/uL (4.8-10.8)
[2016-11-15 08:02] LABS: CALCIUM 8.1 mg/dL (8.4-11.0); CREATININE 0.56 mg/dL (0.55-1.30); POTASSIUM 3.1 mmol/L (3.5-5.1); TOTAL BILIRUBIN 0.2 mg/dL (0.0-1.0); TOTAL PROTEIN, SERUM 5.3 g/dL (6.4-8.3)
[2016-11-15] MEDS: METOCLOPRAMIDE HCL 10 MG TABLET PO SCH ×2 (08:35→21:00)
[2016-11-15] MEDS: LISINOPRIL 20 MG TABLET PO SCH (08:35)
--- NOTE | 2016-11-15 08:36 | NUR ---
RN ROUNDS/PAIN MEDICATION PATIENT RESTING IN BED COMPLAINING OF SEVERE PAIN AT THIS TIME, EDUCATED THE PATIENT ON PAIN MEDICATION AND POTENTIAL SIDE EFFECTS, PATIENT VERBALIZED UNDERSTANDING AND TOLERATED WELL AT THIS TIME, NO OTHER NEEDS AT THIS TIME, BED IN LOWEST POSITION, TWO SIDE RAILS UP, FALL PRECAUTIONS IN PLACE, CALL LIGHT NEXT TO THE PATIENT'S HAND.
[2016-11-15] MEDS ORDERED: POTASSIUM CHLORIDE 40 MEQ in NS 250 ML IV ONE (09:45)
[2016-11-15 10:51] VITALS: BP 165/85; PULSE 80; RESP 18; TEMP 97.9; O2SAT 94
--- NOTE | 2016-11-15 11:20 | NUR ---
RN ROUNDS PATIENT RESTING IN BED, AWAKE, DENIES PAIN AT THIS TIME, EDUCATED THE PATIENT ON MEDICATIONS AND POTASSIUM REPLACEMENT AND POTENTIAL SIDE EFFECTS, PATIENT VERBALIZED UNDERSTANDING AT THIS TIME, TOLERATED WELL, BLOOD GLUCOSE CHECK AND INSULIN ADMINISTRATION COMPLETE PER MD ORDERS, NO OTHER NEEDS AT THIS TIME, BED IN LOWEST POSITION, TWO SIDE RAILS UP, FALL PRECAUTIONS IN PLACE, CALL LIGHT NEXT TO THE PATIENT'S HAND, PATIENT STATES SHE WILL HAVE PAIN MEDICATION PRIOR TO PHYSICAL THERAPY, WILL FOLLOW UP.
[2016-11-15 12:43] VITALS: BP 155/89; PULSE 80; RESP 17; TEMP 97.9; O2SAT 91
--- NOTE | 2016-11-15 13:07 | NUR ---
RN ROUNDS PATIENT RESTING IN BED, EYES CLOSED, BREATHING IS EVEN AND UNLABORED, NO SIGNS OF DISTRESS AT THIS TIME, BED IN LOWEST POSITION, TWO SIDE RAILS UP, CALL LIGHT NEXT TO THE PATIENT'S HAND, FALL PRECAUTIONS IN PLACE.
[2016-11-15] MEDS: HYDROmorphone 2 MG/ML VIAL IVP PRN ×2 (14:52→23:06)
--- NOTE | 2016-11-15 14:52 | NUR ---
RN ROUNDS PATIENT RESTING IN BED, COMPLAINING OF PAIN, EDUCATED THE PATIENT ON MEDICATION AND POTENTIAL SIDE EFFECTS, PATIENT VERBALIZED UNDERSTANDING AND TOLERATED WELL, NO OTHER NEEDS AT THIS TIME, BED IN LOWEST POSITION, TWO SIDE RAILS UP, CALL LIGHT PLACED IN THE PATIENT'S HAND, FALL PRECAUTIONS IN PLACE.
--- NOTE | 2016-11-15 16:19 | NUR ---
RN ROUNDS PATIENT RESTING IN BED, STATES MILD AND TOLERABLE PAIN LEVEL AT THIS TIME, PATIENT STATES THAT COLOSTOMY BAG OPENED AND LEAKED, ASSISTED PATIENT TO CLEAN UP, PATIENT IS ABLE TO TURN WELL TO ASSIST NURSE, PHYSICAL THERAPY TO SEE THE PATIENT THIS EVENING, NO OTHER NEEDS AT THIS TIME, BED IN LOWEST POSITION, TWO SIDE RAILS UP, CALL LIGHT IN THE PATIENT'S HAND, FALL PRECAUTIONS IN PLACE.
[2016-11-15 16:44] VITALS: BP 173/73; PULSE 86; RESP 17; TEMP 96.9; O2SAT 96
--- NOTE | 2016-11-15 18:34 | NUR ---
CLOSING NOTES PATIENT RESTING IN BED, AWAKE, DENIES PAIN AT THIS TIME, ALL NEEDS MET, BED IN LOWEST POSITION, THREE SIDE RAILS UP, FALL PRECAUTIONS IN PLACE, CALL LIGHT IN THE PATIENT'S HAND, WILL ENDORSE REPORT TO NOC SHIFT NURSE.
[2016-11-15 19:20] VITALS: BP 169/85; PULSE 86; RESP 20; TEMP 99; O2SAT 92
--- NOTE | 2016-11-15 19:20 | NUR ---
CLOSING NOTES; - Pt is a/ox4, resting in bed. Pt denies any pain,sob,or any acute distress this time. Colostomy-pink moist round,no drainage in place of left side of lower abdomen. KEY x1 drains pink output in place-rt lower side abdomen. IV site of rt wrist patent, no s/s any infiltration noted. IVF D5NS @ 100ml/hr. Fall precaution in place. All safety measures in place. Call light w/in reach. Discussed poc,all safety measures, pain mgmt, pt verbalized understanding. Continue to monitor pt.
[2016-11-15] MEDS: cloNIDine HCL 0.1 MG TABLET PO PRN (20:59)
--- NOTE | 2016-11-15 21:00 | NUR ---
ROUNDS; PAIN MEDICATION ADMINISTERED Pt is c/o abdominal pain, gave [place] 5-325 mg po. IV site of rt hand patent, no s/s any infiltration noted. KEY X1 in place drains pink drainage. Colostomy in place -loose yellow stool noted. IVF D5NS @ 100ml/hr. All safety measures in place. Fall precaution in place. All safety measures in place. Call light w/in reach. Continue to monitor pt.
--- NOTE | 2016-11-15 23:05 | NUR ---
PAIN MEDICATION ADMINISTERED -Pt is c/o abdominal pain, gave Dilaudid 2mg IVP. Call light /win reach. Continue to monitor pt.
[2016-11-15] MEDS: ONDANSETRON HCL 4 MG/2 ML VIAL IVP PRN (23:13)
--- NOTE | 2016-11-15 23:13 | NUR ---
NAUSEA -Pt is c/o nausea after received pain medication. Gave Zofran 4mg IVP. Call light /win reach. Continue to monitor pt.
[2016-11-16] VITALS (8 sets, daily range): BP systolic 97–168; BP diastolic 62–90; PULSE 66–97; RESP 18–20; TEMP 96.5–98.7; O2SAT 86–100
--- NOTE | 2016-11-16 03:47 | NUR ---
ROUNDS; Pt is resting in bed. No s/s any pain,sob,or any acute distress noted. IV site of left f/a patent, no s/s any infiltration noted. IVF D5NS @ 100ml/hr. All safety measures in place. Fall precaution in place. All safety measures in place. Call light w/in reach. Continue to monitor pt. Addendum: 11/16/16 at 0531 by Teresita Palma RN CORRECTION-IV SITE IS RT F/A.
--- NOTE | 2016-11-16 05:30 | NUR ---
ENDORSED TO MAGGIE TO CONTINUE CARE Pt is resting in bed. No s/s any pain,sob,or any acute distress noted. IVF D5NS @ 100ml/hr. All safety measures in place. Fall precaution in place. All safety measures in place. Call light w/in reach. Continue to monitor pt.
--- NOTE | 2016-11-16 05:32 | NUR ---
ASSUMPTION OF CARE PT A/OX4, C/O 03/25 PAIN TO SURGICAL SITE...ABDOMINAL DRESSING C/D/I..KEY TO RT QUAD, COLOSTOMY TO LQ WITH LIQUID STOOL...IVF INFUSING WELL TO RW...CALL LIGHT/PHONE W/IN REACH....COVERING NURSE WILL MEDICATE
[2016-11-16] MEDS: LEVOTHYROXINE SODIUM 0.075 MG TABLET PO SCH (06:17)
[2016-11-16] MEDS: NEOMYCIN SULFATE 500 MG TABLET PO SCH ×3 (06:17→17:52)
[2016-11-16] MEDS: ONDANSETRON HCL 4 MG/2 ML VIAL IVP PRN (06:28)
[2016-11-16] MEDS: HYDROmorphone 1 MG INJ. 1 MG/ML AMPUL IVP PRN ×2 (06:29→06:34)
--- NOTE | 2016-11-16 07:02 | NUR ---
BADILLO CATHETER FLUSHED F/C DRAINING CLOUDY, BLOODY-TINGLED URINE WITH SEDIMENT...WILL CONT TO MONITOR
--- NOTE | 2016-11-16 07:03 | NUR ---
KEY DRAINED 62ml OF SEROSANGUINEOUS OUTPUT.....
[2016-11-16] MEDS: INSULIN REGULAR, HUMAN 100 UNITS/ML, 10 ML VIAL (novoLIN R) SUBCUT PRN ×2 (07:11→17:52)
--- NOTE | 2016-11-16 07:57 | NUR ---
O2 at 86% per pt that's okay it runs low at times pt asymptomatic, denies SOB or difficulty breathing...Nurse offered pt O2 pt refused stated " Im fine" will cont to monitor
--- NOTE | 2016-11-16 08:02 | NUR ---
INCENTIVE SPIROMETER PT DEMONSTRATED USE UP TO 1500ml...EDUCATED PT ON THE IMPORTANCE OF I/S AND TO USE 10X/HR...PT UNDERSTOOD
[2016-11-16] MEDS: METOCLOPRAMIDE HCL 10 MG TABLET PO SCH ×2 (09:40→20:31)
[2016-11-16] MEDS: LISINOPRIL 20 MG TABLET PO SCH (09:41)
[2016-11-16] MEDS: HYDROcodone/ACETAMIN 5-325 MG TAB (NORCO/ VICODIN) PO PRN ×3 (09:49→20:31)
--- NOTE | 2016-11-16 09:51 | NUR ---
DR LLAMAS AT BEDSIDE
--- NOTE | 2016-11-16 10:34 | NUR ---
BADILLO CATHETER REMOVER PER MD ORDERS 10cc SALINE REMOVED FROM BALLOON, TIP REMOVED. PT TOLERATED WELL..ENCOURAGED PT TO CALL FOR ASSISTANCE TO RESTROOM..PT UNDERSTOOD
[2016-11-16 10:59] LABS: CALCIUM 8.2 mg/dL (8.4-11.0); CREATININE 0.53 mg/dL (0.55-1.30)
--- NOTE | 2016-11-16 11:00 | NUR ---
DR CHIRINOS INFORMED OF PTS LOW OXYGEN LEVEL ABG ORDER GIVEN
[2016-11-16 11:03] LABS: POTASSIUM 2.9 mmol/L (3.5-5.1)
--- NOTE | 2016-11-16 12:32 | NUR ---
PAIN Pt c/o surgical site pain...Pain meds discontinued by Dr. Forrest...Dr Lon grant
--- NOTE | 2016-11-16 12:41 | NUR ---
DR CHIRINOS HERE AND INFORMED REGARDING PAIN, AND LUNG NODULES, AND THAT PT SEES DR MUNOZ
[2016-11-16] MEDS: POTASSIUM CHLORIDE 20 MEQ TAB.PRT.SR PO SCH ×2 (12:44→16:59)
--- NOTE | 2016-11-16 12:45 | NUR ---
PT AMBULATED TO RESTROOM USING FWW.. PT HAD STEADY GAIT..
--- NOTE | 2016-11-16 13:00 | NUR ---
COLOSTOMY BAG CHANGED FAMILY MEMBER AT BEDSIDE...EXPLAINED TO BOTH FAMILY MEMBER AND PT HOW TO CHANGE BAG AND CLEAN SITE...WILL REINFORCE TEACHING LATER TODAY
[2016-11-16] MEDS: PIPERACILLIN/TAZO 3.375/DEX-IS 50 ML IV SCH ×2 (13:31→17:36)
--- NOTE | 2016-11-16 14:45 | NUR ---
PHYSICAL THERAPY CO-SIGN The Physical Therapy Progress Notes documented by Stable Cleaner have been reviewed. Reviewed/Co-Signed by: Joleen Stoll, PT Documentation Done by: Trip Richardson PTA I concur with the documentation of this SENIOR HADOOP DEVELOPER. Plan: continue PT as per plan of care. Addendum: 11/17/16 at 0820 by Joleen Stoll PT Amended: Links added.
--- NOTE | 2016-11-16 15:00 | NUR ---
PT AMBULATED TO RESTROOM, URINATING WITH NO DIFFICULTY
--- NOTE | 2016-11-16 15:16 | NUR ---
CONSULT PULMONARY HYPOXIC DR PINEDA [phone] S/W [facility] OFFICE @ [id number]
[2016-11-16 15:29] LABS: BLOOD GAS PH 7.475 (7.350-7.450)
[2016-11-16 15:30] LABS: ABG TOTAL HEMOGLOBIN 8.9 G/dL (12.0-18.0); BLOOD GAS BASE EXCESS 2.4 mmol/L (-3.0-3.0); BLOOD GAS COHb% 3.3 % (0.5-1.5); BLOOD GAS HHB 16.6 % (0.0-6.0); BLOOD O2Hb% 79.8 % (94.0-97.0)
--- NOTE | 2016-11-16 16:19 | NUR ---
DISCHARGE PLANNING DC order to arrange home health and colostomy supplies. Spoke with DONNA Cui Ext:[phone] at [facility] contracted [facility] [employer], and [employer]. Spoke with Pascual at [facility] confirmed contracted and able to arrange colostomy supples. Pascual requested wound care notes including reference or item numbers with measurements. Pascual stated supplies take up to 3-4days to deliver to patient home. Note left for wound care nurse. Received faxed contracted home health vendors. [facility] have no nursing staff available. [facility] no nursing staff available. [facility] not contracted. [facility] only does IV medications. Faxed referral to [facility], [facility], [facility], [facility], [facility]. Will follow up. Addendum: 11/16/16 at 1659 by Zoila Bailon DP Spoke with Soraida at [facility] patient accepted. Tia was provided with contract number and will obtain insurance auth. Tia made aware estimated discharge date for tomorrow and will have nursing on standby to see patient on Saturday 11/18.
[2016-11-16 18:45] LABS: POTASSIUM 3.5 mmol/L (3.5-5.1)
--- NOTE | 2016-11-16 20:00 | NUR ---
OPENING NOTE RECEIVED PATIENT AWAKE RESTING IN BED WATCHING TV. NO S/S DISTRESS. A/OX4. MID ABD DRESSING CLEAN,DRY AND INTACT. LEFT SIDE COLOSTOMY NOTED. EMPTY/NO LEAKING NOTED. RIGHT SIDE KEY DRAIN. 40ML OUTPUT. LIGHT RED/POC DISCUSSED WITH PT. COMM BOARD UPDATED.IV TO RIGHT WRIST SALINE LOCKED. SCDS IN PLACE.
[2016-11-16] MEDS ORDERED: ALBUTEROL SULFATE 0.083% 2.5 MG/3 ML VIAL.NEB INH PRN (20:15)
[2016-11-16] MEDS ORDERED: IPRATROPIUM BROM 0.5 MG/2.5 ML VIAL.NEB (ATROVENT) INH PRN (20:15)
[2016-11-16] MEDS: LACTOBACILLUS RHAMNOSUS GG 1 CAP CAPSULE PO SCH (20:31)
[2016-11-17] VITALS: BP 149/76; PULSE 67; RESP 16; TEMP 97.2; O2SAT 92
[2016-11-17] MEDS: PIPERACILLIN/TAZO 3.375/DEX-IS 50 ML IV SCH ×5 (00:02→23:40)
[2016-11-17] MEDS: NEOMYCIN SULFATE 500 MG TABLET PO SCH ×5 (00:02→23:49)
--- NOTE | 2016-11-17 00:10 | NUR ---
rounds pt up to bathroom and back in bed. colostomy emptied. 200ml loose brown. blood sugar 99. due iv antibiotic started. pain tolerable at this time. umberto-10ml
[2016-11-17] MEDS: HYDROcodone/ACETAMIN 5-325 MG TAB (NORCO/ VICODIN) PO PRN ×4 (02:51→22:15)
--- NOTE | 2016-11-17 02:55 | NUR ---
pain pain med norco given for surgical site pain 5/10. will monitor and reassess pain.
--- NOTE | 2016-11-17 03:19 | NUR ---
rounds pt comfortable. appears to be sleeping. no s/s distress. will continue to monitor for any changes.
[2016-11-17] MEDS: cloNIDine HCL 0.1 MG TABLET PO PRN (03:54)
[2016-11-17 04:00] VITALS: BP 167/87; PULSE 72; RESP 16; TEMP 97.4; O2SAT 89
[2016-11-17] MEDS: LEVOTHYROXINE SODIUM 0.075 MG TABLET PO SCH (06:27)
[2016-11-17] MEDS: IBUPROFEN 400 MG TABLET PO PRN ×3 (06:27→20:01)
--- NOTE | 2016-11-17 06:59 | NUR ---
closing note pt continues to rest. no s/s distress. colostomy bag intact. umberto to right side intact. 20 ml clear with red tinge. iv antibiotic infusing well to right hand. due medications given as ordered. blood sugar 94. safety precautions in place. abd dressing c,d,i.
[2016-11-17 08:00] VITALS: BP 146/70; PULSE 69; RESP 18; TEMP 97.3; O2SAT 94
--- NOTE | 2016-11-17 08:00 | NUR ---
initial notes rec patient awake alert with ivl on the r wrist intact. no infiltration noted or s/s of infection noted. abd dressing with opsite intact. umberto in placed and colostomy intact with loose stool noted.bed in low position and side rails up and locked. call light within reached and knows when to call for assistance.
--- NOTE | 2016-11-17 09:01 | NUR ---
DISCHARGE PLANNING Faxed requested order to DONNA Cui at [facility]. Basilia working on insurance auth and will forward to [facility]. DCP will continue to follow up. Addendum: 11/17/16 at 1643 by Zoila VERDIN Called [facility] spoke with Daily in intake dept who stated still working on insurance auth. DCP will follow up. Faxed supply order to [facility]. Called and spoke with Pascual who will have order processed and stated to allow 4-5days delivery time. Mt made aware and will give patient supplies upon discharge.
[2016-11-17] MEDS: METOCLOPRAMIDE HCL 10 MG TABLET PO SCH ×2 (09:04→20:04)
[2016-11-17] MEDS: LISINOPRIL 20 MG TABLET PO SCH (09:05)
[2016-11-17] MEDS: LACTOBACILLUS RHAMNOSUS GG 1 CAP CAPSULE PO SCH ×2 (09:05→20:03)
--- NOTE | 2016-11-17 10:00 | NUR ---
rounds colostomy was emptied with moderate amount of loose stool. no sob noted.
--- NOTE | 2016-11-17 12:00 | NUR ---
rounds zosyn not available at this time.
[2016-11-17 12:33] VITALS: BP 138/60; PULSE 70; RESP 18; TEMP 97.8; O2SAT 90
--- NOTE | 2016-11-17 12:45 | NUR ---
PHYSICAL THERAPY CO-SIGN The Physical Therapy Progress Notes documented by Shank Threader have been reviewed. Reviewed/Co-Signed by: Joleen Stoll, PT Documentation Done by: Qiana Martinez PTA I concur with the documentation of this AUDIO VISUAL FACILITIES ENGINEER. Plan: continue PT as per plan of care.
--- NOTE | 2016-11-17 13:15 | NUR ---
Wound Evaluation: Late note for 1315 secondary to patient care. Wound Consult received from Dr. Forrest. Thank you, Dr. Forrest, for the consult. Patient received in a [place]ar bed with an Atmos-Air 9000 Mattress, awake, alert, oriented. Skin is good (-). Patient is able to turn in bed and ambulate independently. Dewey score is a 17. Past Medical History: Diabetes Mellitus, Hypothyroidism, Diverticulitis (and Irritable Bowel Syndrome per patient). Recent labs: WBC 8.1, RBC 3.38, Hgb 8.6, Hct 26.8, K 2.9, BUN 4, Creat 0.53, Gluc 159, CA 8.2, Alb 2.0, PT 13.1. Intrinsic factors that delay wound healing: Diabetes Mellitus. Extrinsic factors that delay wound healing: Decreased mobility. MRSA Screen and Blood Culture results x 2 negative. Abdominal Abscess Culture results in progress. Patient is status post Exploratory Laparotomy with Diverting colostomy, Michael's pouch, Lysis of Omentum Adhesions, and Lysis of Small Bowel Adhesions on 11/14/[address] Morrison. Wound Assessment: 1) Left Lower Abdomen: New (Diverting) Colostomy site. Stoma is oval, 80% red, 20% yellow, wider at edges, and measures 2.5 cm x 3.5 cm. Yvette-stoma intact. Recommend: Cleanse Colostomy site with normal Saline. Pat dry. Put SurePrep on yvette-stoma. Put Eakins ring on yvette-stoma. Put Colostomy pouch over stoma. Perform stoma/pouch care q three days, and as needed for pouch dislodgment. Patient educated in diagnosis, and Colostomy care, and understood teaching. Patient will have home health to assist with Colostomy care. Nursing to send extra Colostomy care supplies home with patient. 2) Right Lower Abdomen: Surgical incision. Dressing clean, dry, and intact. KEY drain present with small sero-sanguineous drainage. Recommend: Reinforce dressing as needed. If dressing is soiled or dislodged: Cleanse incision with normal saline. Pat dry. Place SurePrep onto yvette-incision. Cover with oil emulsion dressing, then gauze. Secure with transparent dressing. Perform wound care daily, and as needed for dressing soiling or dislodgment. Also recommend: Encourage and assist patient as needed with repositioning every two hours with pillow support, and off-load pressure areas with pillows for pressure re-distribution. Offload, elevate and float bilateral heels with pillows. Perform skin care and monitor skin integrity q shift. Consent obtained. [facility] will send a starter kit, and will give item numbers for requested supplies. Recommend: One piece moldable pouch with closable tail and charcoal filter, barrier prep, adhesive remover, and eakins ring.
--- NOTE | 2016-11-17 15:07 | NUR ---
rounds spoke with dr dorian cortez ct chest that was not done earlier since has an allergy with iv.
[2016-11-17] MEDS ORDERED: FUROSEMIDE 20 MG/2 ML VIAL IVP ONE (15:30)
[2016-11-17 16:11] VITALS: BP 165/73; PULSE 63; RESP 17; TEMP 98.4; O2SAT 95
--- NOTE | 2016-11-17 18:00 | NUR ---
rounds pt was back from [facility] for the lung vq via wheelchair. no sob noted. meds will be given and accucheck to be done.
[2016-11-17 19:50] VITALS: BP 142/78; PULSE 62; RESP 16; TEMP 97.8; O2SAT 97
--- NOTE | 2016-11-17 19:50 | NUR ---
INITIAL NOTES: PATIENT AWAKE, ALERT AND ORIENTED ;STATES MILD PAIN LEVEL AT THIS TIME, EDUCATED THE PATIENT ON PAIN MANAGEMENT AT THIS TIME, PATIENT VERBALIZED UNDERSTANDING, ASSESSMENT DONE , LEFT ABDOMEN NOTED WITH COLOSTOMY WITH NO DRAINAGE ( BAG WAS CHANGED EARLIER PER REPORT );RIGHT ABDOMEN HAS KEY DRAIN 70 CC PINK DRAINAGE DRAINED ; PER DAY SHIFT RN SHE DIDN'T DRAIN AFTER 10 AM TODAY ;DRESSING TO THE MID ABDOMEN IS CLEAN AND DRY ;WILL CONTINUE TO MONITOR, EDUCATED THE PATIENT LAN/WAN ENGINEER LIGHT SYSTEM AND TO CALL FOR ANY ASSISTANCE, PATIENT VERBALIZED UNDERSTANDING AT THIS TIME, CALL LIGHT PLACED IN THE PATIENT'S HAND, TWO SIDE RAILS UP, PATIENT IS ON OLD BED, BED IN LOWEST POSITION, FALL PRECAUTIONS IN PLACE. V Q SCAN RESULT IS STILL PENDING .WILL CONTINUE TO MONITOR.
--- NOTE | 2016-11-17 20:05 | NUR ---
MEDICATION: PT GOT UP AND USED RESTROOM , AFTER THAT PT IS C/O PAIN , MEDICATED WITH MOTRIN SINCE NORCO IS NOT DUE ; DUE OTHER MEDS ALSO GIVEN ; WILL CONTINUE TO MONITOR.
--- NOTE | 2016-11-17 22:25 | NUR ---
MEDICATION: PT CALLED AND STATED SHE IS IN PAIN ; MEDICATED WITH NORCO PER ORDER .
--- NOTE | 2016-11-17 23:45 | NUR ---
MEDICATION: DUE MIDNIGHT MEDS GIVEN ; PT IS COMFORTABLE ; WILL CONTINUE TO MONITOR PT .
[2016-11-17] MEDS: INSULIN REGULAR, HUMAN 100 UNITS/ML, 10 ML VIAL (novoLIN R) SUBCUT PRN (23:48)
[2016-11-18] VITALS: BP 149/76; PULSE 60; RESP 16; TEMP 98.6; O2SAT 98
--- NOTE | 2016-11-18 01:42 | NUR ---
RN ROUNDS: PT IS SLEEPING COMFORTABLY; WILL CONTINUE TO MONITOR.
--- NOTE | 2016-11-18 03:06 | NUR ---
PAIN: PT CALLED AND C/O SEVERE PAIN ; MEDICATED WITH DEMEROL IM ORDERED .
--- NOTE | 2016-11-18 03:45 | NUR ---
CLOSING NOTES: PT IS SLEEPING, NOT IN ANY ACUTE DISTRESS . Addendum: 11/18/16 at 3123 by Charlie Varner RN CORRECTION , TRANG NOTES
[2016-11-18 04:18] VITALS: BP 145/82; PULSE 54; RESP 16; TEMP 97.9; O2SAT 98
--- NOTE | 2016-11-18 05:30 | NUR ---
RN NOTES: PT IS SLEEPING; NOT IN ANY ACUTE DISTRESS; WILL CONTINUE TO MONITOR.
[2016-11-18] MEDS: LEVOTHYROXINE SODIUM 0.075 MG TABLET PO SCH (06:24)
[2016-11-18] MEDS: PIPERACILLIN/TAZO 3.375/DEX-IS 50 ML IV SCH (06:24)
[2016-11-18] MEDS: NEOMYCIN SULFATE 500 MG TABLET PO SCH (06:24)
[2016-11-18] MEDS: ALBUTEROL SULFATE 0.083% 2.5 MG/3 ML VIAL.NEB INH SCH ×2 (07:00→11:00)
[2016-11-18] MEDS: IPRATROPIUM BROM 0.5 MG/2.5 ML VIAL.NEB (ATROVENT) INH SCH ×2 (07:00→11:00)
--- NOTE | 2016-11-18 07:30 | NUR ---
CLOSING NOTES: PT IS AWAKE, NOT IN ANY ACUTE DISTRESS; REPORT GIVEN TO RN AT BEDSIDE .
[2016-11-18 08:00] VITALS: BP 160/80; PULSE 58; RESP 18; TEMP 97.8; O2SAT 98
--- NOTE | 2016-11-18 08:00 | NUR ---
initial notes rec patient awake alert with ivl on the r wrist intact. no infiltration noted. resp easy and unlabored. denies pain at this time. umberto intact with small amount of serous drain. abd dressing and colostomy intact with loose to pasty stool noted. ambulates to the br at intervals and palma well. bed in low position and side rails up and locked. fall. safety measures reinforced. call light within reached.
[2016-11-18] MEDS: HYDROcodone/ACETAMIN 5-325 MG TAB (NORCO/ VICODIN) PO PRN (08:55)
--- NOTE | 2016-11-18 08:56 | NUR ---
DISCHARGE PLANNING Spoke with Abgiail in intake dept at [facility] auth received RN will call patient/family to make visit arrangements upon discharge. Spoke with Pascual at [facility] fax received. Pending item numbers to forward for supply order. DCP will follow up. Addendum: 11/18/16 at 1634 by Zoila Bailon DP spoke with Pascual at [facility] auth was received for supples and are in process to be shipped to patient. Estimated delivery to patient home 11/23 or 11/24.
[2016-11-18] MEDS: LACTOBACILLUS RHAMNOSUS GG 1 CAP CAPSULE PO SCH (09:06)
[2016-11-18] MEDS: LISINOPRIL 20 MG TABLET PO SCH (09:07)
[2016-11-18] MEDS: METOCLOPRAMIDE HCL 10 MG TABLET PO SCH (09:07)
--- NOTE | 2016-11-18 09:14 | NUR ---
rounds seen by dr diaz and with order to be discharged.due meds given as ordered.
--- NOTE | 2016-11-18 10:00 | NUR ---
rounds seen by dr diaz and order for patient to be d/c. due meds given as ordered.
[2016-11-18 12:05] VITALS: BP 146/89; PULSE 62; RESP 18; TEMP 97; O2SAT 98
[2016-11-18 12:28] VITALS: BP 146/89; PULSE 63; RESP 18; TEMP 97; O2SAT 95
--- NOTE | 2016-11-18 12:30 | NUR ---
closing notes pt was discharged and was picked by family. dressing changed on the mid incision area dry and cleaned. can be left open to air but requested to be covered bec of her dogs at home. colostomy bag was emptied prior to d/c. instruction on how to empty umberto was done and dressing changed on the umberto site too with sponge 2x2 dressing. id band was removed and put on the shredder. was wheeled out via wheelchair and stable. needs attended.
== END 2016-11-18 12:20 | disposition home health service (06) | DRG 221 ==
LOC: SED 07:45 → SMU 09:42
PROVIDERS: ADMIT Internal Medicine Hospice and Palliative Medicine; ATTEND Internal Medicine Hospice and Palliative Medicine
PROC: 0D1N0Z4 Bypass Sigmoid Colon to Cutaneous, Open Approach (ICD-10-PCS; principal; 2016-11-15)
PROC: 0DN80ZZ Release Small Intestine, Open Approach (ICD-10-PCS; 2016-11-15)
PROC: 0WJH0ZZ Inspection of Retroperitoneum, Open Approach (ICD-10-PCS; 2016-11-15)
PROC: 0DNS0ZZ (ICD-10-PCS; 2016-11-15)
PROC: 0DBN0ZZ Excision of Sigmoid Colon, Open Approach (ICD-10-PCS; 2016-11-15)
DX: K57.80 Diverticulitis of intestine, part unspecified, with perforation and abscess without bleeding (principal); E44.0 Moderate protein-calorie malnutrition; J98.11 Atelectasis; E03.9 Hypothyroidism, unspecified; E11.9 Type 2 diabetes mellitus without complications; E78.5 Hyperlipidemia, unspecified; K66.0 Peritoneal adhesions (postprocedural) (postinfection); R09.02 Hypoxemia; K82.8 Other specified diseases of gallbladder; Z90.49 Acquired absence of other specified parts of digestive tract; Z88.8 Allergy status to other drugs, medicaments and biological substances; Z88.6 Allergy status to analgesic agent; Z88.1 Allergy status to other antibiotic agents; Z91.041 Radiographic dye allergy status; Z79.899 Other long term (current) drug therapy; Z68.32 Body mass index [BMI] 32.0-32.9, adult
CPT/HCPCS: 36415; 36600; 71010; 78579; 78580-TC; 80048; 80053; 81000-TC; 82803-TC; 82962; 83605; 83690-TC; 83735-TC; 84132-TC; 85025; 85610-TC; 85730-TC; 86886; 86900; 86901; 86920; 87040-TC; 87070-TC; 87075-TC; 87081; 93005; 93970; 96361; 96365; 96375; 97110-GP; 97116-GP; 97530-GP; 99285; A5061; A9539; A9540; J1170; J1815; J1885; J1940; J2175; J2250; J2405; J2543; J2704; J2765; J3480; J7030; J7040; J7042; J7050; J7120; J8597

== ENCOUNTER 2016-11-21 11:03 | Inpatient (IN) | payer MEDICAID ==
[2016-11-14 12:48] VITALS: Ht 166.4 cm; Wt 90.3 kg
[~2016-11-21] VITALS: Ht 166.4 cm; Wt 90.3 kg
[~2016-11-21 11:03] MED LIST changes: +FENO48TA2 PO; +METF1000 PO; +PRO40 PO
--- NOTE | 2016-11-21 11:03 | NUR ---
Patient to ER bed 2 to gown for evaluation. Side rails up. Report given to MARIAMA COSTELLO
[2016-11-21 11:05] VITALS: BP 159/79; PULSE 67; RESP 16; TEMP 97.5; O2SAT 95
--- NOTE | 2016-11-21 11:05 | NUR ---
Pt presents ED c/o blood in colostomy bag and bleeding at site s/p leaving 's office for drainage tube removal. Pt report s feeling stinging sensation and bleeding noted. Pt h/o HTN,DM,hypothyroid and GERD. Pt AAOx 4 ,connected to monitor.
--- NOTE | 2016-11-21 11:30 | NUR ---
Medication reconciliation completed with information provided by pt. Any prior medication reconciliation on file was reviewed and corrected.
[2016-11-21 11:40] LABS: BASOPHILS # (AUTO) 0.2 K/uL (0.0-0.2); BASOPHILS % (AUTO) 1.4 % (0.0-2.0); EOSINOPHILS # (AUTO) 0.2 K/uL (0.0-0.4); EOSINOPHILS % (AUTO) 1.8 % (0.0-4.0); HEMATOCRIT 33.6 % (36-48); HEMOGLOBIN 11.1 g/dL (12.0-16.0); LYMPHOCYTES # (AUTO) 1.9 K/uL (1.0-5.5); LYMPHOCYTES % (AUTO) 14.8 % (20.5-51.5); MEAN CORPUSCULAR HEMOGLOBIN 26 pg (27-31); MEAN CORPUSCULAR HGB CONC 33 % (32-36); MEAN CORPUSCULAR VOLUME 78 fL (79.0-98.0); MONOCYTES # (AUTO) 0.5 K/uL (0.0-1.0); NEUTROPHILS # (AUTO) 9.9 K/uL (1.8-7.7); PLATELET COUNT (AUTO) 474 K/uL (130-430); RED BLOOD CELL COUNT(AUTO) 4.31 MIL/uL (4.2-6.2); RED CELL DISTRIBUTION WIDTH 15.2 % (9.0-15.0); WHITE BLOOD COUNT (AUTO) 12.7 K/uL (4.8-10.8)
[2016-11-21 11:51] LABS: CALCIUM 9.2 mg/dL (8.4-11.0); CREATININE 0.63 mg/dL (0.55-1.30); POTASSIUM 3.5 mmol/L (3.5-5.1)
[2016-11-21 11:53] LABS: INR 1.1 (0.8-1.2); PROTHROMBIN TIME 11.7 SECS (9.5-12.5)
[2016-11-21 11:56] LABS: ALBUMIN 2.9 g/dL (3.4-4.8); TOTAL BILIRUBIN 0.2 mg/dL (0.0-1.0); TOTAL PROTEIN, SERUM 7.7 g/dL (6.4-8.3)
[2016-11-21] MEDS ORDERED: IBUP-1969 PO (12:17)
--- NOTE | 2016-11-21 12:17 | NUR ---
Pt ambulated to restyroom w/o assist .Pt reports colostomy bag partially filled w/ blood.
--- NOTE | 2016-11-21 13:00 | NUR ---
STOMA SITE CLEANSED AND NEW COLOSTOMY BAG PLACED.PT TOLERATED WELL.
--- NOTE | 2016-11-21 14:30 | NUR ---
No leaking noted around colostomy bag.
[2016-11-21 14:37] LABS: BILIRUBIN,URINE NEGATIVE (NEGATIVE); BLOOD, URINE 3+ (NEGATIVE); COLOR,URINE YELLOW (YELLOW); GLUCOSE,URINE NEGATIVE (NEGATIVE); KETONES,URINE NEGATIVE (NEGATIVE); LEUKOCYTE ESTERASE ,URINE 2+ (NEGATIVE); NITRITE, URINE NEGATIVE (NEGATIVE); PH,URINE 5.5 (5.0-8.0); PROTEIN URINE NEGATIVE (NEGATIVE); UROBILINOGEN,URINE 0.2 (0.2-1.0)
[2016-11-21 14:38] LABS: CLARITY/URINE HAZY (CLEAR)
[2016-11-21] MEDS: NORMAL SALINE 5 ML DISP.SYRIN IVF SCH ×2 (14:42→21:02)
[2016-11-21 14:43] LABS: BACTERIA,URINE FEW /HPF (None Seen)
[2016-11-21 14:44] LABS: MUCUS,URINE 1+ /LPF (None Seen)
--- NOTE | 2016-11-21 14:55 | NUR ---
ADMISSION: Received from ER on a gurney with the admitting diagnosis of GI bleed. Oriented x4. Gait is steady. Midline incision is dry and clean. Left colostomy with bloody drainage. Right drainage site with dry dressing, no signs of infection noted. Oriented to room routine. Call light within reach.
[2016-11-21 15:03] VITALS: BP 160/82; PULSE 72; RESP 28; TEMP 98.9; O2SAT 94
--- NOTE | 2016-11-21 15:10 | NUR ---
Patient will be admitted to care of Dr. Forrest. Admitted to Telemetry unit. Will go to room 116B. Summary report printed. Report given to Admission RN.
[2016-11-21 16:00] VITALS: BP 142/65; PULSE 75; RESP 18; TEMP 98; O2SAT 93
--- NOTE | 2016-11-21 16:29 | NUR ---
GI Consult: For Dr. Chiu, regarding GI bleed, ordered by Dr. Koch, spoke with Chelsea.
[2016-11-21] MEDS: HYDROmorphone 1 MG INJ. 1 MG/ML AMPUL IVP PRN ×2 (16:50→21:03)
[2016-11-21] MEDS: D5NS 1,000 ML IV SCH (16:50)
--- NOTE | 2016-11-21 16:50 | NUR ---
c/o of pain pt c/o of lower abd pain 10/10 medicated with dilaudid as ordered. call light within reach
--- NOTE | 2016-11-21 17:30 | NUR ---
rounds pt resting comfortably . pain better. ivf infusing well. not in acute distress
--- NOTE | 2016-11-21 17:41 | NUR ---
Surgical Consult: for Dr. Morrison, colostomy bleed, ordered by Dr. Forrest, spoke with Pau.
[2016-11-21 18:04] LABS: HEMATOCRIT 31.2 % (36-48); HEMOGLOBIN 10.3 g/dL (12.0-16.0)
--- NOTE | 2016-11-21 18:45 | NUR ---
notes colostomy bag changed. colostomy site cleaned and pic taken brown color liquid drainage noted.no active bleeding noted at this time.pt tolerated well.
[2016-11-21] MEDS ORDERED: ONDANSETRON HCL 4 MG/2 ML VIAL IVP PRN (19:00)
[2016-11-21] MEDS ORDERED: DEXTROSE 50% JECT 50 ML DISP.SYRIN IVP PRN (19:00)
--- NOTE | 2016-11-21 19:30 | NUR ---
closing notes pt stable . denies any pain or orther discomfort at this time.ivf infusing well instructed pt to use call light for help . pt verbalized understanding. report given to night nurse
[2016-11-21 20:00] VITALS: BP 161/82; PULSE 75; RESP 19; TEMP 97; O2SAT 92
--- NOTE | 2016-11-21 20:00 | NUR ---
PM Shift Assessment Received patient lying in bed, AAO x4, no acute distress noted. Assessment complete, no complain of pain at this time. IV noted to left hand, IV fluids infusing well, no redness or swelling noted to IV site. Colostomy noted to left abdomen, no output noted at this time, will continue to monitor for bleeding. Mid abdomen incision noted in healing stages, closely approximated, no drainage noted, open to air. Gauze dressing noted to right abdomen, per patient from removal of KEY drain today at Dr. Morrison's office, dressing is clean dry and intact. Patient is verbally able to make needs known and encouraged to do so. Encouraged patient to call for assistance if she needs to get out of bed for safety, she verbalized understanding. Plan of care discussed with patient and undated on board. Call light is within reach, all fall and safety precautions in place, will continue to monitor for change in patient status.
[2016-11-21] MEDS: PANTOPRAZOLE SODIUM 40 MG/VIAL (PROTONIX) IVP SCH (21:02)
--- NOTE | 2016-11-21 21:41 | NUR ---
PAGED: I PAGED DR. CHIRINOS @ 2140 I SPOKE WITH FAZAL FLORENCIA I PAGED SECOND TIME @ 2210 I SPOKE WITH [employer] EXCHANGE CALLED BACK @ 2213 AND CONNECTED RN WITH DR. CHIRINOS
--- NOTE | 2016-11-21 22:15 | NUR ---
MD Called Dr Forrest was called and made aware that patient does not have a diet, she is diabetic and has not had anything to eat all day. New order for clear liquid diet, orders noted and carried out. Snack provided to patient.
[2016-11-22] VITALS: BP 163/80; PULSE 78; RESP 17; TEMP 97; O2SAT 93
[2016-11-22] MEDS: INSULIN REGULAR, HUMAN 100 UNITS/ML, 10 ML VIAL (novoLIN R) SUBCUT PRN ×2 (00:05→06:14)
--- NOTE | 2016-11-22 00:22 | NUR ---
RN Rounds Patient is resting quietly in bed, no acute distress noted. Blood sugar was assessed per MD order. Encouraged patient to call for assistance as needed, she verbalized understanding. No output noted to colostomy bag at this time. Call light is within reach, all fall and safety precautions in place, will continue to monitor.
--- NOTE | 2016-11-22 02:26 | NUR ---
RN Rounds Patient is sleeping, respirations are even and unlabored, no acute distress noted. IV fluids infusing well. Call light is within reach, all fall and safety precautions in place, will continue to monitor.
[2016-11-22] MEDS: D5NS 1,000 ML IV SCH ×2 (03:29→20:01)
[2016-11-22] MEDS: HYDROmorphone 1 MG INJ. 1 MG/ML AMPUL IVP PRN ×4 (03:30→20:19)
[2016-11-22 04:15] VITALS: BP 159/81; PULSE 85; RESP 18; TEMP 97; O2SAT 91
--- NOTE | 2016-11-22 04:34 | NUR ---
RN Rounds Patient is resting quietly in bed, ambulatory with steady gait to restroom and safely back to bed. complained of pain earlier to abdomen, PRN pain medication was administered as ordered per MD, upon reassessment patient verbalized relief of pain to tolerable level on pain scale. IV fluids infusing well. Call light is within reach, all fall and safety precautions in place, will continue to monitor.
[2016-11-22 04:46] LABS: HEMATOCRIT 31.7 % (36-48); HEMOGLOBIN 10.2 g/dL (12.0-16.0)
[2016-11-22] MEDS: NORMAL SALINE 5 ML DISP.SYRIN IVF SCH ×3 (06:06→22:16)
[2016-11-22] MEDS: LEVOTHYROXINE SODIUM 0.075 MG TABLET PO SCH (06:06)
--- NOTE | 2016-11-22 06:44 | NUR ---
Closing Notes Patient is resting quietly in bed, no acute distress noted or complain of pain at this time. Patient is stable, all needs met throughout shift. No active bleeding noted from colostomy bag. Will continue to monitor until endorsed to AM nurse at bedside.
--- NOTE | 2016-11-22 07:57 | NUR ---
INITIAL NOTES RECEIVED PATIENT ON BED AWAKE.BREATHING EVEN AND UNLABORED COMPLAINING OF 8/10 LOWER ABDOMINAL PAIN.IV SALINE LOCK INTACT AND PATENT;NO SIGNS AND SYMPTOMS OF INFILTRATION.SAFETY AND FALL PRECAUTIONS IN PLACE.CALL LIGHT WITHIN REACH
[2016-11-22 08:00] VITALS: BP 150/68; PULSE 69; RESP 16; TEMP 96.8; O2SAT 91
[2016-11-22] MEDS: PANTOPRAZOLE SODIUM 40 MG/VIAL (PROTONIX) IVP SCH ×2 (08:09→20:19)
[2016-11-22] MEDS: LISINOPRIL 20 MG TABLET PO SCH (08:09)
--- NOTE | 2016-11-22 08:30 | NUR ---
NOTES PATIENT LEFT FOR RADIOLOGY;STABLE
--- NOTE | 2016-11-22 09:17 | NUR ---
Nutrition Update Dewey Scale 16 noted. Pt admitted for GI bleed. Diet: clear liquid, no red BMI: 32.6 kg/m2 RD to follow per nutrition care standards.
--- NOTE | 2016-11-22 10:16 | NUR ---
DISCHARGE PLANNING Patient currently on service with [facility] and supplies are ordered with [facility] .
--- NOTE | 2016-11-22 11:30 | NUR ---
NOTES PATIENT CAME BACK FROM RADIOLOGY FOR NUCLEAR MEDICINE STUDY;NO ACUTE DISTRESS
[2016-11-22 12:58] LABS: HEMATOCRIT 33.4 % (36-48); HEMOGLOBIN 10.9 g/dL (12.0-16.0)
--- NOTE | 2016-11-22 15:00 | NUR ---
NOTES CHECKED PATIENT;NEEDS ATTENDED TO
[2016-11-22 16:00] VITALS: BP 158/72; PULSE 61; RESP 18; TEMP 97.2; O2SAT 91
--- NOTE | 2016-11-22 16:42 | NUR ---
NOTES PATIENT COMPLAINING OF DISCOMFORTS TO IV SITE;CHECKED AND ASSESSED SITE;NO SWELLING;NO REDNESS;WITH RESISTANCE WHEN FLUSHED WITH NORMAL SALINE;REMOVED IV CATHETER;PRESSURE DRESSING APPLIED
--- NOTE | 2016-11-22 16:49 | NUR ---
NOTES RE-INSERTED IV CATHETER TO RIGHT HAND;SUCCESSFUL WITH THIRD ATTEMPT;WITH GOOD BLOOD RETURN;PROCEDURE TOLERATED WELL
[2016-11-22 18:28] LABS: HEMATOCRIT 32.3 % (36-48); HEMOGLOBIN 10.9 g/dL (12.0-16.0)
--- NOTE | 2016-11-22 18:30 | NUR ---
CLOSING NOTES PATIENT ON BED AWAKE.BREATHING EVEN AND UNLABORED.NO ACUTE DISTRESS.IVF INFUSING WELL;NO SIGNS AND SYMPTOMS OF INFILTRATION.SAFETY AND FALL PRECAUTIONS IN PLACE.CALL LIGHT WITHIN REACH.WILL ENDORSE TO NEXT SHIFT ACCORDINGLY
[2016-11-22 19:40] VITALS: BP 149/79; PULSE 65; RESP 18; TEMP 96.9; O2SAT 93
--- NOTE | 2016-11-22 19:44 | NUR ---
Initial PM Note Pt was received lying in bed fully AAO x4. Speech is clear and pt is able to make her needs known. No c/o pain or discomfort. Skin is warm and dry to touch. No signs or symptoms of hypoglycemia or hyperglycemia noted. Saline lock is patent in RH and no signs of infiltration noted at the site. Colostomy bag is intact on pt's lt abdomen with small amount of liquid brownish stool noted in the bag. Pt refused IVF and stated she does not need it because she is eating well. Fall precautions are in place. Call light is with pt. Bed is in the lowest and locked positions. Pt was instructed to call for assistance as needed and pt verbalized understanding.
--- NOTE | 2016-11-22 20:19 | NUR ---
Pain Medication Dilaudid 1mg was given IV for c/o abdominal pain with some relief.
--- NOTE | 2016-11-22 23:00 | NUR ---
Rounds Pt is resting comfortably in bed. No c/o pain or discomfort. Call light is with pt.
[2016-11-23] LABS: HEMATOCRIT 31.2 % (36-48); HEMOGLOBIN 10.1 g/dL (12.0-16.0)
[2016-11-23] MEDS: HYDROmorphone 1 MG INJ. 1 MG/ML AMPUL IVP PRN ×3 (00:20→16:02)
--- NOTE | 2016-11-23 00:20 | NUR ---
Pain Medication Dilaudid 1mg was given IV for c/o abdominal pain with some relief.
[2016-11-23 00:23] VITALS: BP 152/68; PULSE 70; RESP 18; TEMP 97.4; O2SAT 94
[2016-11-23] MEDS: INSULIN REGULAR, HUMAN 100 UNITS/ML, 10 ML VIAL (novoLIN R) SUBCUT PRN (00:27)
--- NOTE | 2016-11-23 02:30 | NUR ---
Rounds Pt is sleeping comfortably in bed. Call light is with pt.
[2016-11-23 04:30] VITALS: BP 143/74; PULSE 64; RESP 16; TEMP 97.2; O2SAT 93
--- NOTE | 2016-11-23 04:30 | NUR ---
Rounds Pt is sleeping comfortably in bed. Call light is with pt.
--- NOTE | 2016-11-23 05:05 | NUR ---
Pain Medication Dilaudid 1mg was given IV for c/o abdominal pain with relief.
[2016-11-23] MEDS: NORMAL SALINE 5 ML DISP.SYRIN IVF SCH ×2 (05:11→16:03)
[2016-11-23] MEDS: LEVOTHYROXINE SODIUM 0.075 MG TABLET PO SCH (06:14)
--- NOTE | 2016-11-23 06:39 | NUR ---
Closing Note Pt is awake and resting comfortably in bed. All pt's needs were attended to. No fall or injury noted this shift. Accucheck 111 this AM and no Insulin coverage needed. Skin remains warm and dry to touch. Will endorse to day shift nurse.
[2016-11-23 07:09] LABS: BASOPHILS % (AUTO) 0.5 % (0.0-2.0); EOSINOPHILS # (AUTO) 0.3 K/uL (0.0-0.4); EOSINOPHILS % (AUTO) 3.6 % (0.0-4.0); HEMATOCRIT 31.2 % (36-48); HEMOGLOBIN 10.1 g/dL (12.0-16.0); LYMPHOCYTES # (AUTO) 2.2 K/uL (1.0-5.5); LYMPHOCYTES % (AUTO) 27.8 % (20.5-51.5); MEAN CORPUSCULAR HEMOGLOBIN 25 pg (27-31); MEAN CORPUSCULAR HGB CONC 32 % (32-36); MEAN CORPUSCULAR VOLUME 77 fL (79.0-98.0); MONOCYTES # (AUTO) 0.6 K/uL (0.0-1.0); MONOCYTES % (AUTO) 7.9 % (1.7-9.3); NEUTROPHILS % (AUTO) 60.2 % (40.0-70.0); PLATELET COUNT (AUTO) 411 K/uL (130-430); RED BLOOD CELL COUNT(AUTO) 4.04 MIL/uL (4.2-6.2); RED CELL DISTRIBUTION WIDTH 15.9 % (9.0-15.0); WHITE BLOOD COUNT (AUTO) 8.1 K/uL (4.8-10.8)
--- NOTE | 2016-11-23 07:40 | NUR ---
Handoff report with walking rounds. Patient taking dilauded 1mg prn q 4 hours. No evidence of bleed in labs. No transfusions.
[2016-11-23 08:00] VITALS: BP 144/72; PULSE 72; RESP 16; TEMP 97; O2SAT 92
[2016-11-23 08:00] LABS: CALCIUM 8.9 mg/dL (8.4-11.0); CREATININE 0.46 mg/dL (0.55-1.30)
--- NOTE | 2016-11-23 08:45 | NUR ---
Attending doctor second round to patient.
--- NOTE | 2016-11-23 09:30 | NUR ---
Surgeon rounds this am.
--- NOTE | 2016-11-23 10:00 | NUR ---
Rounds to patient. Patient requesting to shower. Will discuss with provider.
[2016-11-23] MEDS: D5NS 1,000 ML IV SCH (10:19)
[2016-11-23 12:00] VITALS: BP 147/75; PULSE 65; RESP 21; TEMP 97.8; O2SAT 94
--- NOTE | 2016-11-23 12:00 | NUR ---
Call from patient. Shower complete last hour. Requests to have ostomy bag change.
--- NOTE | 2016-11-23 14:00 | NUR ---
Rounds to patient. Request for something besides dilauded. Notified would review chart. Training on placement of ostomy pouch. Cream applied to reddened area at inferior ostomy site after discussing with wound care nurse. Teaching about zgaurd for reddened areas or equivalent to create barrier. Says her bag has opened up frequently and does not like the home care supplies she had. Coordination with Dori regarding use of comvatec bag patient prefers. She will reach out to Jack with [facility] the supplier for the pt.
[2016-11-23 16:00] VITALS: BP 174/77; PULSE 74; RESP 21; TEMP 98.1; O2SAT 94
--- NOTE | 2016-11-23 16:00 | NUR ---
Call to MD Morrison and MD Chiu to verify discharge orders.
[2016-11-23] MEDS: PANTOPRAZOLE SODIUM 40 MG/VIAL (PROTONIX) IVP SCH (16:02)
[2016-11-23] MEDS: LISINOPRIL 20 MG TABLET PO SCH (16:03)
[2016-11-23 16:25] VITALS: BP 174/77; PULSE 71; RESP 19; TEMP 97.8; O2SAT 94
--- NOTE | 2016-11-23 17:12 | NUR ---
D/C Patient Patient given medication reconciliation form and D/C instructions. Exit Care provided. Patient verbalized understanding. MD discussed with patient the results and treatment provided. Ambulatory with steady gait for discharge to home. Patient in stable condition, ID band removed. IV catheter removed, intact and dressing applied, no active bleeding. No Rx given. Patient educated on pain management. All belongings sent with patient.
--- NOTE | 2016-11-24 12:00 | NUR ---
Discharge Follow Up Phone Call HOSTESS HOST phoned [facility], p [phone] f [phone], and spoke with Abigail. They are following patient. Abigail stated they will continue to follow patient and can use the old order from the previous admission. HOSTESS HOST faxed H&P. HOSTESS HOST phoned patient, . Patient stated she was doing okay. Patient was not interested in ostomy support group information and patient stated the colostomy is only temporary. Patient has been in contact with [facility] who had only one visit prior to hospitalization. Patient has received the ostomy supplies from [employer]. Patient will follow up with her PCP. Patient did not want further follow up calls.
== END 2016-11-23 17:50 | disposition home health service (06) | DRG 253 ==
LOC: SED 11:03 → STU 14:46 → SMU 15:10 → STU 15:14 → SMU 15:50
PROVIDERS: ADMIT Internal Medicine Hospice and Palliative Medicine; ATTEND Internal Medicine Hospice and Palliative Medicine
DX: K92.2 Gastrointestinal hemorrhage, unspecified (principal); E44.0 Moderate protein-calorie malnutrition; E11.65 Type 2 diabetes mellitus with hyperglycemia; R71.0 Precipitous drop in hematocrit; I10 Essential (primary) hypertension; E03.9 Hypothyroidism, unspecified; E78.5 Hyperlipidemia, unspecified; E66.9 Obesity, unspecified; Z90.49 Acquired absence of other specified parts of digestive tract; Z90.710 Acquired absence of both cervix and uterus; Z93.3 Colostomy status; Z83.3 Family history of diabetes mellitus; Z88.6 Allergy status to analgesic agent; Z88.1 Allergy status to other antibiotic agents; Z91.041 Radiographic dye allergy status; Z91.048 Other nonmedicinal substance allergy status; Z79.899 Other long term (current) drug therapy; Z68.32 Body mass index [BMI] 32.0-32.9, adult
CPT/HCPCS: 36415; 71010; 78278-TC; 80048; 80053; 81000-TC; 82962; 85018-TC; 85025; 85610-TC; 85730-TC; 86886; 86900; 86901; 87045-TC; 87046; 87081; 87086; 87186-TC; 87230-TC; 89055; 93005; 99285; A5061; A9560; C9113; J1170; J1815; J7042

== ENCOUNTER 2017-02-16 14:13 | Emergency (ER) | payer MEDICAID ==
[~2017-02-16] VITALS: Ht 167.6 cm; Wt 83.5 kg
[~2017-02-16 14:13] MED LIST changes: -CIPR-211 PO; -DIPH25CA83 PO; -FENO145T PO; -GLU500 PO; -IBUP-1517 PO; -INSU100V26; -INSU100V9 SQ; -LEVO75TA7 PO; -METR500T PO; -ZESTRIL PO
[2017-02-16 14:17] VITALS: BP_SYST 119
[2017-02-16 14:59] LABS: BLOOD, URINE NEGATIVE (NEGATIVE); CLARITY/URINE HAZY (CLEAR); COLOR,URINE AMBER (YELLOW); GLUCOSE,URINE NEGATIVE (NEGATIVE); KETONES,URINE TRACE (NEGATIVE); LEUKOCYTE ESTERASE ,URINE 2+ (NEGATIVE); NITRITE, URINE NEGATIVE (NEGATIVE); PROTEIN URINE TRACE (NEGATIVE); UROBILINOGEN,URINE 0.2 (0.2-1.0)
[2017-02-16 15:04] LABS: BILIRUBIN,URINE NEGATIVE (NEGATIVE)
[2017-02-16] MEDS ORDERED: ONDANSETRON 4 MG ODT TAB PO ONE (15:15)
[2017-02-16 15:23] LABS: RBC,URINE NONE SEEN /HPF (0-3)
[2017-02-16 15:24] LABS: BACTERIA,URINE MANY /HPF (None Seen); MUCUS,URINE 1+ /LPF (None Seen); WBC,URINE 20-50 /HPF (0-3)
[2017-02-16 15:28] LABS: BASOPHILS % (AUTO) 0.4 % (0.0-2.0); EOSINOPHILS # (AUTO) 0.1 K/uL (0.0-0.4); EOSINOPHILS % (AUTO) 1.2 % (0.0-4.0); HEMATOCRIT 38.9 % (36-48); HEMOGLOBIN 12.6 g/dL (12.0-16.0); LYMPHOCYTES # (AUTO) 0.6 K/uL (1.0-5.5); LYMPHOCYTES % (AUTO) 6.7 % (20.5-51.5); MEAN CORPUSCULAR HEMOGLOBIN 25 pg (27-31); MEAN CORPUSCULAR HGB CONC 33 % (32-36); MEAN CORPUSCULAR VOLUME 78 fL (79.0-98.0); MONOCYTES % (AUTO) 10.7 % (1.7-9.3); NEUTROPHILS # (AUTO) 7.2 K/uL (1.8-7.7); PLATELET COUNT (AUTO) 481 K/uL (130-430); RED BLOOD CELL COUNT(AUTO) 5.01 MIL/uL (4.2-6.2); RED CELL DISTRIBUTION WIDTH 14.7 % (9.0-15.0); WHITE BLOOD COUNT (AUTO) 8.9 K/uL (4.8-10.8)
[2017-02-16 15:33] LABS: CALCIUM 9.3 mg/dL (8.4-11.0); CREATININE 1.1 mg/dL (0.55-1.30)
[2017-02-16 15:34] LABS: INR 1.1 (0.8-1.2); PROTHROMBIN TIME 11.4 SECS (9.5-12.5)
[2017-02-16 15:38] LABS: ALBUMIN 3.7 g/dL (3.4-4.8); TOTAL BILIRUBIN 0.3 mg/dL (0.0-1.0)
[2017-02-16] MEDS ORDERED: CEPHALEXIN 500 MG CAPSULE PO ONE (15:45)
[2017-02-16 16:35] VITALS: BP_SYST 113
== END 2017-02-16 16:34 | disposition home or self-care (01) ==
LOC: SED 14:13
DX: N39.0 Urinary tract infection, site not specified (principal); R19.7 Diarrhea, unspecified; E11.9 Type 2 diabetes mellitus without complications; E78.5 Hyperlipidemia, unspecified; Z88.1 Allergy status to other antibiotic agents; Z91.041 Radiographic dye allergy status; Z88.5 Allergy status to narcotic agent; Z88.8 Allergy status to other drugs, medicaments and biological substances; Z91.048 Other nonmedicinal substance allergy status
CPT/HCPCS: 36415; 80053; 81000; 84484; 85025; 85610; 85730; 87086; 93005; 99285; Q0162

== ENCOUNTER 2017-06-08 23:34 | Emergency (ER) | payer MEDICAID ==
[~2017-06-08] VITALS: Ht 165.1 cm; Wt 90.7 kg
[2017-06-08 23:53] VITALS: BP_SYST 116
== END 2017-06-09 00:29 | disposition left against medical advice (07) ==
LOC: SED 23:34
DX: R10.30 Lower abdominal pain, unspecified (principal); Z53.21 Procedure and treatment not carried out due to patient leaving prior to being seen by health care provider

== ENCOUNTER 2019-07-08 20:19 | Emergency (ER) | payer MEDICAID, OTHER ==
[~2019-07-08] VITALS: Ht 167.6 cm; Wt 104.3 kg
[~2019-07-08 20:19] MED LIST changes: -FENO48TA2 PO; +LEVO250T2 PO; +METR500T PO; +TRI48 PO
[2019-07-08 20:25] VITALS: BP_SYST 135
[2019-07-08] MEDS ORDERED: GLU850 PO (20:39)
[2019-07-08] MEDS ORDERED: SSNOVOLOG SUBCUT (20:40)
[2019-07-08] MEDS ORDERED: INSU100V35 SQ (20:41)
--- NOTE | 2019-07-08 21:05 | NUR ---
Patient to ER bed 07 to gown for evaluation. Side rails up. Report received from TRANG Flores
--- NOTE | 2019-07-08 21:38 | NUR ---
ER at bedside examining patient.
--- NOTE | 2019-07-08 21:38 | NUR ---
Pt drove self to ed. Pt a/ox4. Pt states that she has had shortness of breath starting since yesterday, followed by fever of 102 at home, bilat ear pain 3-4/10, and nonproductive cough. Pt denies chest pain, n/v, dizziness, pt denies any other medical complaint at this time. Pt States she took ibuprofen approx 15 minutes prior to arriving at emergency department. Pt resting in bed [facility] bedside. Will continue to monitor.
[2019-07-08] MEDS ORDERED: AMOXICILLIN 500 MG CAPSULE PO ONE (22:30)
[2019-07-08 22:41] VITALS: BP_SYST 135
--- NOTE | 2019-07-08 22:41 | NUR ---
Patient given written and verbal discharge instructions and verbalizes understanding. ER MD discussed with patient the results and treatment provided. Patient in stable condition. ID arm band removed. Rx of Amoxicillin given. Patient educated on pain management and to follow up with PMD. Pain Scale 0/10 Opportunity for questions provided and answered. Medication side effect fact sheet provided.
== END 2019-07-08 22:41 | disposition home or self-care (01) ==
LOC: SED 20:19
DX: J20.9 Acute bronchitis, unspecified (principal); E11.9 Type 2 diabetes mellitus without complications; E07.9 Disorder of thyroid, unspecified; E87.5 Hyperkalemia; Z90.710 Acquired absence of both cervix and uterus; Z88.1 Allergy status to other antibiotic agents; Z88.8 Allergy status to other drugs, medicaments and biological substances; Z91.041 Radiographic dye allergy status
CPT/HCPCS: 71046-TC; 81002; 82962; 99283

== ENCOUNTER 2019-09-27 03:38 | Emergency (ER) | payer OTHER ==
[~2019-09-27] VITALS: Ht 167.6 cm; Wt 104.3 kg
[~2019-09-27 03:38] MED LIST changes: +GLU850 PO; +INSU100V35 SQ; -LEVO250T2 PO; -METF1000 PO; -METO-290 PO; -METR500T PO; -PRO40 PO; +SSNOVOLOG SUBCUT
[2019-09-27 04:00] VITALS: BP_SYST 159
--- NOTE | 2019-09-27 04:00 | NUR ---
Pt c/o burning pain to left shoulder x 1 week, worse tonight before attempting to go to work. No obvious injury or trauma to shoulder.
--- NOTE | 2019-09-27 04:14 | NUR ---
Dr. Leon bedside for Pt eval
--- NOTE | 2019-09-27 04:20 | NUR ---
Harman ayala in ED - 09/27/19 at 0911 by KOJOJ U/S at bedside.
[2019-09-27 05:50] VITALS: BP_SYST 145
--- NOTE | 2019-09-27 05:50 | NUR ---
Patient given written and verbal discharge instructions and verbalizes understanding. ER MD discussed with patient the results and treatment provided. Patient in stable condition. ID arm band removed. Rx of Ibuprofen and Robaxin given. Patient educated on pain management and to follow up with PMD. Pain Scale 4/10 ps (FLACC) Opportunity for questions provided and answered.
== END 2019-09-27 05:50 | disposition home or self-care (01) ==
LOC: SED 03:38
DX: M25.512 Pain in left shoulder (principal); E11.9 Type 2 diabetes mellitus without complications; E78.5 Hyperlipidemia, unspecified; E07.9 Disorder of thyroid, unspecified; Z79.4 Long term (current) use of insulin; Z79.899 Other long term (current) drug therapy; Z88.1 Allergy status to other antibiotic agents; Z88.6 Allergy status to analgesic agent; Z88.8 Allergy status to other drugs, medicaments and biological substances
CPT/HCPCS: 73030; 99283

== ENCOUNTER 2019-10-08 19:26 | Inpatient (IN) | payer OTHER ==
[~2019-10-08] VITALS: Ht 167.6 cm; Wt 103.0 kg
[2019-10-08 19:30] VITALS: BP_SYST 105
[2019-10-08 22:02] LABS: BASOPHILS # (AUTO) 0.1 K/uL (0.0-0.2); BASOPHILS % (AUTO) 0.8 % (0.0-2.0); EOSINOPHILS % (AUTO) 0.4 % (0.0-4.0); HEMATOCRIT 43.2 % (36-48); HEMOGLOBIN 14.5 g/dL (12.0-16.0); LYMPHOCYTES # (AUTO) 0.9 K/uL (1.0-5.5); LYMPHOCYTES % (AUTO) 11.2 % (20.5-51.5); MEAN CORPUSCULAR HEMOGLOBIN 29 pg (27-31); MEAN CORPUSCULAR HGB CONC 34 % (32-36); MEAN CORPUSCULAR VOLUME 87 fL (79.0-98.0); MONOCYTES # (AUTO) 1.1 K/uL (0.0-1.0); MONOCYTES % (AUTO) 14.1 % (1.7-9.3); NEUTROPHILS # (AUTO) 5.6 K/uL (1.8-7.7); NEUTROPHILS % (AUTO) 73.5 % (40.0-70.0); PLATELET COUNT (AUTO) 372 K/uL (130-430); RED BLOOD CELL COUNT(AUTO) 4.98 MIL/uL (4.2-6.2); RED CELL DISTRIBUTION WIDTH 14.7 % (9.0-15.0); WHITE BLOOD COUNT (AUTO) 7.6 K/uL (4.8-10.8)
[2019-10-08 22:24] LABS: ALBUMIN 3.6 g/dL (3.4-4.8); CALCIUM 9.6 mg/dL (8.4-11.0); CREATININE 1.49 mg/dL (0.55-1.30); POTASSIUM 3.7 mmol/L (3.5-5.1); TOTAL BILIRUBIN 0.6 mg/dL (0.0-1.0)
[2019-10-08 22:52] LABS: PROTHROMBIN TIME 10.1 SECS (9.5-12.5)
[2019-10-09] MEDS ORDERED: NACL 0.9% 1,000 ML IV ONE ×2 (00:45→08:15)
[2019-10-09] MEDS ORDERED: fentaNYL CITRATE/PF 100 MCG/2 ML AMP IVP ONE (00:45)
[2019-10-09] MEDS ORDERED: ONDANSETRON HCL 4 MG/2 ML VIAL IVP ONE (00:45)
[2019-10-09 06:01] VITALS: BP_SYST 97
[2019-10-09 07:40] VITALS: BP_SYST 105
[2019-10-09] MEDS ORDERED: ACETAMINOPHEN 325 MG TABLET PO PRN (08:00)
[2019-10-09] MEDS ORDERED: ALBUTEROL SULFATE 0.083% 2.5 MG/3 ML VIAL.NEB INH PRN (08:00)
[2019-10-09] MEDS ORDERED: HYDROmorphone 1 MG INJ. 1 MG/ML AMPUL IVP PRN (08:00)
[2019-10-09] MEDS ORDERED: metroNIDAZOLE 500 mg/NS 100 ML IV ONE (08:30)
[2019-10-09] MEDS: ONDANSETRON HCL 4 MG/2 ML VIAL IVP PRN ×2 (09:18→16:58)
[2019-10-09] MEDS: HYDROmorphone 2 MG/ML VIAL IVP PRN ×4 (09:20→23:41)
[2019-10-09 09:46] LABS: BASOPHILS % (AUTO) 0.4 % (0.0-2.0); EOSINOPHILS % (AUTO) 0.7 % (0.0-4.0); HEMATOCRIT 39.6 % (36-48); HEMOGLOBIN 13.2 g/dL (12.0-16.0); LYMPHOCYTES # (AUTO) 0.8 K/uL (1.0-5.5); LYMPHOCYTES % (AUTO) 12.4 % (20.5-51.5); MEAN CORPUSCULAR HEMOGLOBIN 29 pg (27-31); MEAN CORPUSCULAR HGB CONC 33 % (32-36); MEAN CORPUSCULAR VOLUME 86 fL (79.0-98.0); MONOCYTES # (AUTO) 1.2 K/uL (0.0-1.0); MONOCYTES % (AUTO) 18.4 % (1.7-9.3); NEUTROPHILS # (AUTO) 4.5 K/uL (1.8-7.7); NEUTROPHILS % (AUTO) 68.1 % (40.0-70.0); PLATELET COUNT (AUTO) 336 K/uL (130-430); RED BLOOD CELL COUNT(AUTO) 4.59 MIL/uL (4.2-6.2); RED CELL DISTRIBUTION WIDTH 14.8 % (9.0-15.0); WHITE BLOOD COUNT (AUTO) 6.6 K/uL (4.8-10.8)
[2019-10-09 10:23] LABS: CALCIUM 8.2 mg/dL (8.4-11.0); CREATININE 1.39 mg/dL (0.55-1.30); POTASSIUM 3.3 mmol/L (3.5-5.1); TOTAL BILIRUBIN 0.5 mg/dL (0.0-1.0)
[2019-10-09] MEDS: INSULIN LISPRO SLIDING SCALE 100 UNITS/ML VIAL (humaLOG) SUBCUT PRN ×3 (11:16→22:05)
[2019-10-09] MEDS: NACL 0.9% 1,000 ML IV SCH ×2 (11:18→20:42)
[2019-10-09 11:57] VITALS: BP_SYST 129
[2019-10-09] MEDS ORDERED: LIDOCAINE TOPICAL OINT 5%, 35 GM TP ONE (12:45)
[2019-10-09] MEDS: metroNIDAZOLE 500 mg/NS 100 ML IV SCH ×2 (14:27→21:58)
[2019-10-09 16:55] VITALS: BP_SYST 129
[2019-10-09 17:05] VITALS: BP_SYST 120
[2019-10-09 20:12] VITALS: BP_SYST 143
[2019-10-10] MEDS: ONDANSETRON HCL 4 MG/2 ML VIAL IVP PRN ×5 (00:02→21:08)
[2019-10-10 01:22] VITALS: BP_SYST 118
[2019-10-10] MEDS: metroNIDAZOLE 500 mg/NS 100 ML IV SCH ×3 (05:30→21:07)
[2019-10-10] MEDS: HYDROmorphone 2 MG/ML VIAL IVP PRN ×5 (05:30→21:49)
[2019-10-10] MEDS: NACL 0.9% 1,000 ML IV SCH ×3 (05:31→15:03)
[2019-10-10] MEDS: LEVOTHYROXINE SODIUM 0.075 MG TABLET PO SCH (06:07)
[2019-10-10 07:27] LABS: BASOPHILS % (AUTO) 0.4 % (0.0-2.0); EOSINOPHILS # (AUTO) 0.1 K/uL (0.0-0.4); EOSINOPHILS % (AUTO) 2.3 % (0.0-4.0); HEMATOCRIT 36.8 % (36-48); HEMOGLOBIN 12.2 g/dL (12.0-16.0); LYMPHOCYTES # (AUTO) 0.8 K/uL (1.0-5.5); LYMPHOCYTES % (AUTO) 14.5 % (20.5-51.5); MEAN CORPUSCULAR HEMOGLOBIN 29 pg (27-31); MEAN CORPUSCULAR HGB CONC 33 % (32-36); MEAN CORPUSCULAR VOLUME 87 fL (79.0-98.0); MONOCYTES % (AUTO) 17.8 % (1.7-9.3); NEUTROPHILS # (AUTO) 3.8 K/uL (1.8-7.7); PLATELET COUNT (AUTO) 295 K/uL (130-430); RED BLOOD CELL COUNT(AUTO) 4.22 MIL/uL (4.2-6.2); RED CELL DISTRIBUTION WIDTH 14.8 % (9.0-15.0); WHITE BLOOD COUNT (AUTO) 5.8 K/uL (4.8-10.8)
[2019-10-10 07:37] LABS: ALBUMIN 2.5 g/dL (3.4-4.8); CALCIUM 7.5 mg/dL (8.4-11.0); CREATININE 0.93 mg/dL (0.55-1.30); POTASSIUM 3.1 mmol/L (3.5-5.1); TOTAL BILIRUBIN 0.3 mg/dL (0.0-1.0)
[2019-10-10 08:00] VITALS: BP_SYST 134
[2019-10-10] MEDS: PANTOPRAZOLE SODIUM 40 MG/VIAL (PROTONIX) IVP SCH (08:55)
[2019-10-10 12:00] VITALS: BP_SYST 122
[2019-10-10] MEDS ORDERED: SIMETHICONE 40 MG/0.6 ML ML ONE (12:55)
[2019-10-10] MEDS: MIDAZOLAM HCL 5 MG/5 ML VIAL ONE ×3 (13:50→13:56)
[2019-10-10] MEDS: MEPERIDINE HCL/PF 100 MG/ML AMP ONE ×2 (13:50→14:00)
[2019-10-10] MEDS ORDERED: ENOXAPARIN SODIUM 40 MG/0.4 ML SYRINGE SUBCUT ONE (15:45)
[2019-10-10 17:00] VITALS: BP_SYST 104
[2019-10-10 20:00] VITALS: BP_SYST 149
[2019-10-11] VITALS: BP_SYST 140
[2019-10-11] MEDS: NACL 0.9% 1,000 ML IV SCH ×4 (00:33→23:57)
[2019-10-11] MEDS: HYDROmorphone 2 MG/ML VIAL IVP PRN ×7 (00:57→22:49)
[2019-10-11] MEDS: ONDANSETRON HCL 4 MG/2 ML VIAL IVP PRN ×4 (04:31→22:54)
[2019-10-11] MEDS: metroNIDAZOLE 500 mg/NS 100 ML IV SCH ×3 (05:06→22:55)
[2019-10-11] MEDS: LEVOTHYROXINE SODIUM 0.075 MG TABLET PO SCH (06:30)
[2019-10-11] MEDS: PANTOPRAZOLE SODIUM 40 MG/VIAL (PROTONIX) IVP SCH (08:38)
[2019-10-11] MEDS: ENOXAPARIN SODIUM 40 MG/0.4 ML SYRINGE SUBCUT SCH (09:00)
[2019-10-11 12:30] VITALS: BP_SYST 142
[2019-10-11 16:40] VITALS: BP_SYST 162
[2019-10-11 20:00] VITALS: BP_SYST 158
[2019-10-12] MEDS: HYDROmorphone 2 MG/ML VIAL IVP PRN ×5 (02:45→18:12)
[2019-10-12 06:17] LABS: BASOPHILS % (AUTO) 0.8 % (0.0-2.0); EOSINOPHILS # (AUTO) 0.1 K/uL (0.0-0.4); EOSINOPHILS % (AUTO) 2.1 % (0.0-4.0); HEMATOCRIT 34.3 % (36-48); HEMOGLOBIN 11.4 g/dL (12.0-16.0); LYMPHOCYTES # (AUTO) 1.3 K/uL (1.0-5.5); LYMPHOCYTES % (AUTO) 24.8 % (20.5-51.5); MEAN CORPUSCULAR HEMOGLOBIN 29 pg (27-31); MEAN CORPUSCULAR HGB CONC 33 % (32-36); MEAN CORPUSCULAR VOLUME 88 fL (79.0-98.0); MONOCYTES # (AUTO) 0.7 K/uL (0.0-1.0); MONOCYTES % (AUTO) 14.6 % (1.7-9.3); NEUTROPHILS # (AUTO) 2.9 K/uL (1.8-7.7); NEUTROPHILS % (AUTO) 57.7 % (40.0-70.0); PLATELET COUNT (AUTO) 278 K/uL (130-430); RED BLOOD CELL COUNT(AUTO) 3.89 MIL/uL (4.2-6.2); RED CELL DISTRIBUTION WIDTH 14.8 % (9.0-15.0); WHITE BLOOD COUNT (AUTO) 5.1 K/uL (4.8-10.8)
[2019-10-12 06:37] LABS: ALBUMIN 2.5 g/dL (3.4-4.8); CALCIUM 7.6 mg/dL (8.4-11.0); CREATININE 0.62 mg/dL (0.55-1.30); POTASSIUM 3.9 mmol/L (3.5-5.1); TOTAL BILIRUBIN 0.2 mg/dL (0.0-1.0)
[2019-10-12] MEDS: metroNIDAZOLE 500 mg/NS 100 ML IV SCH ×3 (06:42→21:51)
[2019-10-12] MEDS: ONDANSETRON HCL 4 MG/2 ML VIAL IVP PRN ×2 (06:42→11:18)
[2019-10-12] MEDS: LEVOTHYROXINE SODIUM 0.075 MG TABLET PO SCH (07:25)
[2019-10-12] MEDS: ENOXAPARIN SODIUM 40 MG/0.4 ML SYRINGE SUBCUT SCH (09:00)
[2019-10-12] MEDS: NACL 0.9% 1,000 ML IV SCH ×3 (09:06→21:52)
[2019-10-12] MEDS: PANTOPRAZOLE SODIUM 40 MG/VIAL (PROTONIX) IVP SCH (09:06)
[2019-10-12 12:30] VITALS: BP_SYST 158
[2019-10-12 16:30] VITALS: BP_SYST 149
[2019-10-12 20:00] VITALS: BP_SYST 158
[2019-10-13] MEDS: NACL 0.9% 1,000 ML IV SCH ×2 (00:16→08:58)
[2019-10-13 00:26] VITALS: BP_SYST 140
[2019-10-13] MEDS: HYDROmorphone 2 MG/ML VIAL IVP PRN ×5 (02:10→22:45)
[2019-10-13] MEDS: metroNIDAZOLE 500 mg/NS 100 ML IV SCH ×3 (07:09→22:49)
[2019-10-13] MEDS: LEVOTHYROXINE SODIUM 0.075 MG TABLET PO SCH ×2 (07:10→07:17)
[2019-10-13] MEDS: ONDANSETRON HCL 4 MG/2 ML VIAL IVP PRN ×4 (07:39→22:45)
[2019-10-13 08:30] VITALS: BP_SYST 153
[2019-10-13] MEDS: ENOXAPARIN SODIUM 40 MG/0.4 ML SYRINGE SUBCUT SCH (09:00)
[2019-10-13] MEDS: PANTOPRAZOLE SODIUM 40 MG/VIAL (PROTONIX) IVP SCH (09:01)
[2019-10-13] MEDS ORDERED: COMMUNICATION ORDER XX ONE (09:45)
[2019-10-13 10:18] LABS: CALCIUM 8.1 mg/dL (8.4-11.0); CREATININE 0.53 mg/dL (0.55-1.30); POTASSIUM 3.3 mmol/L (3.5-5.1)
[2019-10-13 10:24] LABS: ALBUMIN 2.7 g/dL (3.4-4.8); PHOSPHORUS 1.9 mg/dL (2.7-4.5); TOTAL BILIRUBIN 0.3 mg/dL (0.0-1.0)
[2019-10-13 12:47] VITALS: BP_SYST 151
[2019-10-13 16:35] VITALS: BP_SYST 149
[2019-10-13 20:00] VITALS: BP_SYST 149
[2019-10-13] MEDS ORDERED: [UNRECOGNIZED DRUG - OTHER] IV SCH ×9 (21:00)
[2019-10-13] MEDS ORDERED: NACL 0.9% 1,000 ML IV SCH (21:00)
[2019-10-13] MEDS ORDERED: TPN PERIPHERAL IV SCH ×9 (21:00)
[2019-10-13] MEDS ORDERED: K PHOS IV SCH ×9 (21:00)
[2019-10-13] MEDS ORDERED: POTASSIUM CHLORIDE IV SCH ×9 (21:00)
[2019-10-13] MEDS: INSULIN LISPRO SLIDING SCALE 100 UNITS/ML VIAL (humaLOG) SUBCUT PRN (23:25)
[2019-10-14 00:12] VITALS: BP_SYST 151
[2019-10-14] MEDS: HYDROmorphone 2 MG/ML VIAL IVP PRN ×5 (03:53→23:15)
[2019-10-14] MEDS: ONDANSETRON HCL 4 MG/2 ML VIAL IVP PRN ×3 (03:55→13:16)
[2019-10-14 06:13] LABS: BASOPHILS % (AUTO) 0.5 % (0.0-2.0); EOSINOPHILS # (AUTO) 0.1 K/uL (0.0-0.4); EOSINOPHILS % (AUTO) 2.3 % (0.0-4.0); HEMATOCRIT 35.7 % (36-48); HEMOGLOBIN 11.9 g/dL (12.0-16.0); LYMPHOCYTES # (AUTO) 0.8 K/uL (1.0-5.5); LYMPHOCYTES % (AUTO) 14.3 % (20.5-51.5); MEAN CORPUSCULAR HEMOGLOBIN 29 pg (27-31); MEAN CORPUSCULAR HGB CONC 33 % (32-36); MEAN CORPUSCULAR VOLUME 87 fL (79.0-98.0); MONOCYTES # (AUTO) 0.7 K/uL (0.0-1.0); MONOCYTES % (AUTO) 11.9 % (1.7-9.3); PLATELET COUNT (AUTO) 250 K/uL (130-430); RED BLOOD CELL COUNT(AUTO) 4.12 MIL/uL (4.2-6.2); RED CELL DISTRIBUTION WIDTH 14.5 % (9.0-15.0); WHITE BLOOD COUNT (AUTO) 5.6 K/uL (4.8-10.8)
[2019-10-14 06:20] LABS: ALBUMIN 2.2 g/dL (3.4-4.8); CALCIUM 7.7 mg/dL (8.4-11.0); CREATININE 0.45 mg/dL (0.55-1.30); PHOSPHORUS 2.3 mg/dL (2.7-4.5); TOTAL BILIRUBIN 0.3 mg/dL (0.0-1.0)
[2019-10-14] MEDS: metroNIDAZOLE 500 mg/NS 100 ML IV SCH ×3 (06:43→21:16)
[2019-10-14 06:56] LABS: POTASSIUM 2.7 mmol/L (3.5-5.1)
[2019-10-14 08:00] VITALS: BP_SYST 159
[2019-10-14] MEDS: ENOXAPARIN SODIUM 40 MG/0.4 ML SYRINGE SUBCUT SCH (09:00)
[2019-10-14 10:27] LABS: BILIRUBIN,URINE 1+ (NEGATIVE); BLOOD, URINE NEGATIVE (NEGATIVE); CLARITY/URINE CLEAR (CLEAR); COLOR,URINE YELLOW (YELLOW); GLUCOSE,URINE NEGATIVE (NEGATIVE); KETONES,URINE 1+ (NEGATIVE); LEUKOCYTE ESTERASE ,URINE NEGATIVE (NEGATIVE); NITRITE, URINE NEGATIVE (NEGATIVE); PROTEIN URINE 2+ (NEGATIVE); UROBILINOGEN,URINE 0.2 (0.2-1.0)
[2019-10-14 11:19] LABS: BACTERIA,URINE RARE /HPF (None Seen); RBC,URINE 0-3 /HPF (0-3); WBC,URINE 0-3 /HPF (0-3)
[2019-10-14] MEDS ORDERED: POTASSIUM CHLORIDE 40 MEQ in NS 250 ML IV ONE (12:00)
[2019-10-14 12:31] VITALS: BP_SYST 164
[2019-10-14] MEDS: INSULIN LISPRO SLIDING SCALE 100 UNITS/ML VIAL (humaLOG) SUBCUT PRN (13:19)
[2019-10-14] MEDS: PANTOPRAZOLE SODIUM 40 MG/VIAL (PROTONIX) IVP SCH (13:20)
[2019-10-14] MEDS ORDERED: LR 1,000 ML IV SCH (15:37)
[2019-10-14] MEDS ORDERED: NS IRRIG SOLN 1000 ML IR ONE (15:40)
[2019-10-14] MEDS ORDERED: MIDAZOLAM HCL 5 MG/ML VIAL (VERSED) IV ONE (15:40)
[2019-10-14] MEDS ORDERED: PROPOFOL 200MG/ 20ML VIAL (DIPRIVAN) IV ONE (15:40)
[2019-10-14] MEDS ORDERED: ROCURONIUM BROMIDE 10 MG/ML (ZEMURON) ONE (15:40)
[2019-10-14] MEDS ORDERED: metroNIDAZOLE 500 mg/NS 100 mL IVPB IV ONE (15:40)
[2019-10-14] MEDS ORDERED: fentaNYL CITRATE 250 MCG/5 ML AMP ONE (15:40)
[2019-10-14] MEDS ORDERED: SEVOFLURANE 15 MIN GAS INH ONE (15:40)
[2019-10-14] MEDS ORDERED: LR 1,000 ML IV.SOLN IV ONE (15:40)
[2019-10-14] MEDS ORDERED: HYDROmorphone 1 MG INJ. 1 MG/ML AMPUL IVP PRN ×2 (15:45)
[2019-10-14] MEDS ORDERED: METOCLOPRAMIDE HCL 10 MG/2 ML VIAL IVP PRN (15:45)
[2019-10-14] MEDS ORDERED: HYDROmorphone 2 MG/ML VIAL IVP PRN (15:45)
[2019-10-14] MEDS ORDERED: METOCLOPRAMIDE HCL 10 MG/2 ML VIAL ONE (15:55)
[2019-10-14] MEDS ORDERED: HYDROmorphone 1 MG INJ. 1 MG/ML AMPUL ONE (15:56)
[2019-10-14 20:00] VITALS: BP_SYST 174
[2019-10-14] MEDS ORDERED: KCL 20 mEq in 100 mL (PREMIX) 100 ML IV ONE (20:00)
[2019-10-14] MEDS ORDERED: TPN PERIPHERAL IV SCH ×10 (21:00)
[2019-10-14] MEDS ORDERED: [UNRECOGNIZED DRUG - OTHER] IV SCH ×10 (21:00)
[2019-10-14] MEDS ORDERED: K PHOS IV SCH ×10 (21:00)
[2019-10-14] MEDS ORDERED: POTASSIUM CHLORIDE IV SCH ×10 (21:00)
[2019-10-14] MEDS: FAT EMULSIONS 250 ML IV SCH (21:17)
[2019-10-14] MEDS: NACL 0.9% 1,000 ML IV SCH (21:25)
[2019-10-15 00:02] VITALS: BP_SYST 186
[2019-10-15] MEDS: HYDROmorphone 2 MG/ML VIAL IVP PRN ×7 (02:40→22:01)
[2019-10-15] MEDS: ONDANSETRON HCL 4 MG/2 ML VIAL IVP PRN ×3 (05:56→23:29)
[2019-10-15] MEDS: metroNIDAZOLE 500 mg/NS 100 ML IV SCH ×3 (06:00→21:29)
[2019-10-15] MEDS: INSULIN LISPRO SLIDING SCALE 100 UNITS/ML VIAL (humaLOG) SUBCUT PRN ×4 (06:08→23:27)
[2019-10-15 06:38] LABS: CALCIUM 7.5 mg/dL (8.4-11.0); CREATININE 0.49 mg/dL (0.55-1.30); PHOSPHORUS 2.4 mg/dL (2.7-4.5); TOTAL BILIRUBIN 0.3 mg/dL (0.0-1.0)
[2019-10-15 07:08] LABS: POTASSIUM 2.6 mmol/L (3.5-5.1)
[2019-10-15] MEDS ORDERED: POTASSIUM CHLORIDE 40 MEQ in NS 250 ML IV ONE (07:45)
[2019-10-15] MEDS ORDERED: POTASSIUM CHLORIDE 20 MEQ in NS 250 ML IV ONE (07:45)
[2019-10-15 08:00] VITALS: BP_SYST 147
[2019-10-15] MEDS ORDERED: COMMUNICATION ORDER XX ONE (08:15)
[2019-10-15] MEDS ORDERED: POTASSIUM CHLORIDE 60 MEQ in NS 500 ML IV ONE (08:15)
[2019-10-15] MEDS: ENOXAPARIN SODIUM 40 MG/0.4 ML SYRINGE SUBCUT SCH (08:56)
[2019-10-15] MEDS: PANTOPRAZOLE SODIUM 40 MG/VIAL (PROTONIX) IVP SCH (08:57)
[2019-10-15 12:23] VITALS: BP_SYST 152
[2019-10-15 16:33] VITALS: BP_SYST 152
[2019-10-15] MEDS: NACL 0.9% 1,000 ML IV SCH (17:00)
[2019-10-15 20:00] VITALS: BP_SYST 159
[2019-10-15] MEDS ORDERED: POTASSIUM CHLORIDE IV SCH ×10 (21:00)
[2019-10-15] MEDS ORDERED: K PHOS IV SCH ×10 (21:00)
[2019-10-15] MEDS ORDERED: [UNRECOGNIZED DRUG - OTHER] IV SCH ×10 (21:00)
[2019-10-15] MEDS ORDERED: TPN PERIPHERAL IV SCH ×10 (21:00)
[2019-10-15] MEDS: FAT EMULSIONS 250 ML IV SCH (21:27)
[2019-10-15 23:56] VITALS: BP_SYST 131
[2019-10-16] MEDS: HYDROmorphone 2 MG/ML VIAL IVP PRN ×7 (01:02→23:32)
[2019-10-16] MEDS: INSULIN LISPRO SLIDING SCALE 100 UNITS/ML VIAL (humaLOG) SUBCUT PRN ×3 (05:41→17:32)
[2019-10-16] MEDS: LEVOTHYROXINE SODIUM 0.075 MG TABLET PO SCH (06:05)
[2019-10-16 08:40] LABS: BASOPHILS % (AUTO) 0.3 % (0.0-2.0); EOSINOPHILS # (AUTO) 0.2 K/uL (0.0-0.4); EOSINOPHILS % (AUTO) 1.7 % (0.0-4.0); HEMATOCRIT 32.3 % (36-48); HEMOGLOBIN 10.9 g/dL (12.0-16.0); LYMPHOCYTES # (AUTO) 0.7 K/uL (1.0-5.5); LYMPHOCYTES % (AUTO) 6.8 % (20.5-51.5); MEAN CORPUSCULAR HEMOGLOBIN 29 pg (27-31); MEAN CORPUSCULAR HGB CONC 34 % (32-36); MEAN CORPUSCULAR VOLUME 86 fL (79.0-98.0); MONOCYTES # (AUTO) 0.8 K/uL (0.0-1.0); MONOCYTES % (AUTO) 7.8 % (1.7-9.3); NEUTROPHILS # (AUTO) 8.5 K/uL (1.8-7.7); NEUTROPHILS % (AUTO) 83.4 % (40.0-70.0); PLATELET COUNT (AUTO) 217 K/uL (130-430); RED BLOOD CELL COUNT(AUTO) 3.76 MIL/uL (4.2-6.2); RED CELL DISTRIBUTION WIDTH 14.2 % (9.0-15.0); WHITE BLOOD COUNT (AUTO) 10.2 K/uL (4.8-10.8)
[2019-10-16] MEDS: PANTOPRAZOLE SODIUM 40 MG/VIAL (PROTONIX) IVP SCH (08:45)
[2019-10-16] MEDS: ENOXAPARIN SODIUM 40 MG/0.4 ML SYRINGE SUBCUT SCH (08:45)
[2019-10-16 08:55] LABS: ALBUMIN 1.8 g/dL (3.4-4.8); CALCIUM 7.6 mg/dL (8.4-11.0); CREATININE 0.52 mg/dL (0.55-1.30); PHOSPHORUS 2.3 mg/dL (2.7-4.5); TOTAL BILIRUBIN 0.2 mg/dL (0.0-1.0)
[2019-10-16 09:09] LABS: POTASSIUM 2.7 mmol/L (3.5-5.1)
[2019-10-16] MEDS: ONDANSETRON HCL 4 MG/2 ML VIAL IVP PRN ×2 (11:45→20:39)
[2019-10-16 12:00] VITALS: BP_SYST 154
[2019-10-16] MEDS ORDERED: POTASSIUM CHLORIDE 40 MEQ in NS 250 ML IV ONE (13:00)
[2019-10-16] MEDS: NACL 0.9% 1,000 ML IV SCH (14:13)
[2019-10-16 16:25] VITALS: BP_SYST 152
[2019-10-16 20:00] VITALS: BP_SYST 164
[2019-10-16 20:07] VITALS: BP_SYST 164
[2019-10-16] MEDS: FAT EMULSIONS 250 ML IV SCH (20:47)
[2019-10-16] MEDS ORDERED: POTASSIUM CHLORIDE IV SCH ×11 (21:00)
[2019-10-16] MEDS ORDERED: [UNRECOGNIZED DRUG - OTHER] IV SCH ×11 (21:00)
[2019-10-16] MEDS ORDERED: TPN PERIPHERAL IV SCH ×11 (21:00)
[2019-10-16] MEDS ORDERED: K PHOS IV SCH ×11 (21:00)
[2019-10-17] VITALS: BP_SYST 158
[2019-10-17] MEDS: INSULIN LISPRO SLIDING SCALE 100 UNITS/ML VIAL (humaLOG) SUBCUT PRN ×4 (00:20→17:36)
[2019-10-17] MEDS: HYDROmorphone 2 MG/ML VIAL IVP PRN ×5 (02:52→16:47)
[2019-10-17] MEDS: LEVOTHYROXINE SODIUM 0.075 MG TABLET PO SCH (06:20)
[2019-10-17 07:57] LABS: BASOPHILS % (AUTO) 0.3 % (0.0-2.0); EOSINOPHILS # (AUTO) 0.2 K/uL (0.0-0.4); EOSINOPHILS % (AUTO) 1.7 % (0.0-4.0); HEMATOCRIT 31.7 % (36-48); HEMOGLOBIN 10.6 g/dL (12.0-16.0); LYMPHOCYTES # (AUTO) 0.8 K/uL (1.0-5.5); LYMPHOCYTES % (AUTO) 8.8 % (20.5-51.5); MEAN CORPUSCULAR HEMOGLOBIN 29 pg (27-31); MEAN CORPUSCULAR HGB CONC 34 % (32-36); MEAN CORPUSCULAR VOLUME 86 fL (79.0-98.0); MONOCYTES # (AUTO) 0.7 K/uL (0.0-1.0); NEUTROPHILS # (AUTO) 7.9 K/uL (1.8-7.7); NEUTROPHILS % (AUTO) 82.2 % (40.0-70.0); PLATELET COUNT (AUTO) 209 K/uL (130-430); RED BLOOD CELL COUNT(AUTO) 3.67 MIL/uL (4.2-6.2); RED CELL DISTRIBUTION WIDTH 14.6 % (9.0-15.0); WHITE BLOOD COUNT (AUTO) 9.6 K/uL (4.8-10.8)
[2019-10-17 08:37] LABS: ALBUMIN 1.9 g/dL (3.4-4.8); CALCIUM 7.8 mg/dL (8.4-11.0); CREATININE 0.57 mg/dL (0.55-1.30); PHOSPHORUS 3.1 mg/dL (2.7-4.5); TOTAL BILIRUBIN 0.2 mg/dL (0.0-1.0)
[2019-10-17 08:45] LABS: POTASSIUM 2.9 mmol/L (3.5-5.1)
[2019-10-17] MEDS: ENOXAPARIN SODIUM 40 MG/0.4 ML SYRINGE SUBCUT SCH (09:00)
[2019-10-17] MEDS: PANTOPRAZOLE SODIUM 40 MG/VIAL (PROTONIX) IVP SCH (09:28)
[2019-10-17] MEDS ORDERED: POTASSIUM CHLORIDE 40 MEQ in NS 250 ML IV ONE (10:15)
[2019-10-17] MEDS ORDERED: POTASSIUM CHLORIDE 20 MEQ TAB.PRT.SR PO ONE (10:15)
[2019-10-17 12:48] VITALS: BP_SYST 159
[2019-10-17] MEDS: ONDANSETRON HCL 4 MG/2 ML VIAL IVP PRN (15:59)
[2019-10-17] MEDS: NACL 0.9% 1,000 ML IV SCH (15:59)
[2019-10-17 16:33] VITALS: BP_SYST 147
[2019-10-17 20:00] VITALS: BP_SYST 162
[2019-10-17] MEDS ORDERED: K PHOS IV SCH ×11 (21:00)
[2019-10-17] MEDS ORDERED: TPN PERIPHERAL IV SCH ×11 (21:00)
[2019-10-17] MEDS ORDERED: [UNRECOGNIZED DRUG - OTHER] IV SCH ×11 (21:00)
[2019-10-17] MEDS ORDERED: POTASSIUM CHLORIDE IV SCH ×11 (21:00)
[2019-10-17] MEDS: FAT EMULSIONS 250 ML IV SCH (22:30)
[2019-10-18] MEDS: HYDROmorphone 2 MG/ML VIAL IVP PRN ×6 (01:05→19:57)
[2019-10-18] MEDS: INSULIN LISPRO SLIDING SCALE 100 UNITS/ML VIAL (humaLOG) SUBCUT PRN ×5 (01:15→23:48)
[2019-10-18 01:41] VITALS: BP_SYST 158
[2019-10-18] MEDS: NACL 0.9% 1,000 ML IV SCH ×2 (05:00→23:38)
[2019-10-18] MEDS: LEVOTHYROXINE SODIUM 0.075 MG TABLET PO SCH (06:17)
[2019-10-18] MEDS: ENOXAPARIN SODIUM 40 MG/0.4 ML SYRINGE SUBCUT SCH (09:00)
[2019-10-18] MEDS: PANTOPRAZOLE SODIUM 40 MG/VIAL (PROTONIX) IVP SCH (09:13)
[2019-10-18 09:20] VITALS: BP_SYST 160
[2019-10-18 10:27] VITALS: BP_SYST 160
[2019-10-18 12:19] VITALS: BP_SYST 161
[2019-10-18 13:43] LABS: CREATININE 0.61 mg/dL (0.55-1.30); PHOSPHORUS 3.3 mg/dL (2.7-4.5); POTASSIUM 3.2 mmol/L (3.5-5.1); TOTAL BILIRUBIN 0.3 mg/dL (0.0-1.0)
[2019-10-18] MEDS ORDERED: POTASSIUM CHLORIDE 20 MEQ TAB.PRT.SR PO ONE ×2 (14:45→18:00)
[2019-10-18 16:50] VITALS: BP_SYST 166
[2019-10-18 19:30] VITALS: BP_SYST 154
[2019-10-19 00:45] VITALS: BP_SYST 154
[2019-10-19] MEDS: HYDROmorphone 1 MG INJ. 1 MG/ML AMPUL IVP PRN ×3 (02:20→13:45)
[2019-10-19] MEDS: LEVOTHYROXINE SODIUM 0.075 MG TABLET PO SCH (06:43)
[2019-10-19] MEDS: INSULIN LISPRO SLIDING SCALE 100 UNITS/ML VIAL (humaLOG) SUBCUT PRN (06:55)
[2019-10-19] MEDS: ENOXAPARIN SODIUM 40 MG/0.4 ML SYRINGE SUBCUT SCH (09:00)
[2019-10-19] MEDS: PANTOPRAZOLE SODIUM 40 MG/VIAL (PROTONIX) IVP SCH (10:28)
[2019-10-19 12:00] VITALS: BP_SYST 145
[2019-10-19 15:32] VITALS: BP_SYST 120
[2019-10-19 15:53] VITALS: BP_SYST 161
== END 2019-10-19 16:00 | disposition home health service (06) | DRG 329 ==
LOC: SED 19:26 → SMU 10-09 03:32
PROVIDERS: ADMIT Internal Medicine Hospice and Palliative Medicine; ATTEND Internal Medicine Hospice and Palliative Medicine
PROC: 0DJD8ZZ Inspection of Lower Intestinal Tract, Via Natural or Artificial Opening Endoscopic (ICD-10-PCS; principal; 2019-10-10 14:00)
PROC: 0D1L0Z4 Bypass Transverse Colon to Cutaneous, Open Approach (ICD-10-PCS; 2019-10-14)
DX: K56.51 Intestinal adhesions [bands], with partial obstruction (principal); E43 Unspecified severe protein-calorie malnutrition; E87.1 Hypo-osmolality and hyponatremia; R18.8 Other ascites; K57.90 Diverticulosis of intestine, part unspecified, without perforation or abscess without bleeding; K64.8 Other hemorrhoids; K43.9 Ventral hernia without obstruction or gangrene; D64.9 Anemia, unspecified; E03.9 Hypothyroidism, unspecified; E11.65 Type 2 diabetes mellitus with hyperglycemia; K42.9 Umbilical hernia without obstruction or gangrene; E78.5 Hyperlipidemia, unspecified; E83.39 Other disorders of phosphorus metabolism; E83.51 Hypocalcemia; E87.6 Hypokalemia; I10 Essential (primary) hypertension; E66.01 Morbid (severe) obesity due to excess calories; K21.9 Gastro-esophageal reflux disease without esophagitis; M19.90 Unspecified osteoarthritis, unspecified site; Z83.3 Family history of diabetes mellitus; Z90.49 Acquired absence of other specified parts of digestive tract; Z90.710 Acquired absence of both cervix and uterus; Z91.19 Patient's noncompliance with other medical treatment and regimen; Z68.36 Body mass index [BMI] 36.0-36.9, adult; Z79.899 Other long term (current) drug therapy; Z88.1 Allergy status to other antibiotic agents; Z88.0 Allergy status to penicillin; Z88.5 Allergy status to narcotic agent; Z88.8 Allergy status to other drugs, medicaments and biological substances; Z91.048 Other nonmedicinal substance allergy status
CPT/HCPCS: 96361; 96374; 99285; G0104; 36415; 71045; 74021; 74280-TC; 80053; 81000-TC; 82150-TC; 82378; 82962; 83690-TC; 83735-TC; 84100-TC; 84132-TC; 84478-TC; 85025; 85610-TC; 85730-TC; 86886; 86900; 86901; 87081; 93005; A4409; A5061; C9113; J0610; J1170; J1650; J2175; J2250; J2405; J2704; J2765; J3010; J3475; J3480; J3490; J7030; J7040; J7050; J7120; J7131

== ENCOUNTER 2019-10-20 16:31 | Emergency (ER) | payer OTHER ==
[~2019-10-20] VITALS: Ht 167.6 cm; Wt 103.0 kg
[2019-10-20 17:27] VITALS: BP_SYST 161
--- NOTE | 2019-10-20 19:06 | NUR ---
Patient to ER bed 8 to gown for evaluation. Side rails up.
--- NOTE | 2019-10-20 19:08 | NUR ---
Patient arrived via POV, AAOx4, and ambulatory with steady gait. Patient states she was discharged yesterday, and she has ran out of supplies for colostomy. She has been through 8+ bags in the past 24 hours. Unable to get a seal, unknown supply company information. Patient's surgery was performed on October 14, since they have been unable to have a seal with the cut size colostomy bag. Patient has been taking flagyl since surgery. She has kevin for closure just below the She reports she's completed her systemic antibiotics Flagyl. She is still pending to see her surgeon for follow up. Patient having kevin pulling, no pain at this time. Incision is partially open. Will continue to follow up and monitor.
--- NOTE | 2019-10-20 19:08 | NUR ---
INDIRA Chandra at bedside examining patient.
[2019-10-20 19:53] VITALS: BP_SYST 155
--- NOTE | 2019-10-20 19:53 | NUR ---
Patient given written and verbal discharge instructions and verbalizes understanding. ER MD discussed with patient the results and treatment provided. Patient in stable condition. ID arm band removed. No Rx given. Patient educated on pain management and to follow up with PMD. Pain Scale 0. Opportunity for questions provided and answered. Medication side effect fact sheet provided.
== END 2019-10-20 19:53 | disposition home or self-care (01) ==
LOC: SED 16:31
DX: K94.03 Colostomy malfunction (principal); E11.9 Type 2 diabetes mellitus without complications; Z88.1 Allergy status to other antibiotic agents; Z88.5 Allergy status to narcotic agent; Z88.8 Allergy status to other drugs, medicaments and biological substances; Z79.899 Other long term (current) drug therapy
CPT/HCPCS: 99282; A4409

== ENCOUNTER 2019-10-22 08:46 | Emergency (ER) | payer OTHER ==
[~2019-10-22] VITALS: Ht 167.6 cm; Wt 103.0 kg
[2019-10-22 08:50] VITALS: BP_SYST 155
--- NOTE | 2019-10-22 09:04 | NUR ---
Placed in room 08 . Placed on nuclear monitoring technician, blood pressure machine and pulse oximeter. To gown for exam. Side rails up. Report given to
--- NOTE | 2019-10-22 09:10 | NUR ---
Patient AAOx4 c/o nausea and sickness, pain /10, and red inflammation at her colostomy site. Patient reports having a bowel resection surgery done by Dr. Schneider on 10/14 and was discharged on 10/19. Patient denies any vomiting or diarrhea. Patient reports history of diabetes, hyperlipidemia, and diverticulitis. Patient reports surgical history of 2 bowel resections, hysterectomy, cholescystectomy, and left wrist surgery. Patient is also complaining of not having enough colostomy supplies. Respirations even and unlabored and skin warm/pink/dry. No signs or symptoms of acute distress noted.
--- NOTE | 2019-10-22 09:14 | NUR ---
INDIRA Syed at bedside examining patient.
--- NOTE | 2019-10-22 09:24 | NUR ---
Dr. Syed speaking with Dr. Zheng. clip baker to be called at [facility] to be called.
[2019-10-22] MEDS ORDERED: NACL 0.9% 1,000 ML IV ONE (09:30)
[2019-10-22] MEDS ORDERED: ONDANSETRON HCL 4 MG/2 ML VIAL IVP ONE (09:30)
[2019-10-22] MEDS ORDERED: KETOROLAC TROMETHAMINE 30 MG VIAL IVP ONE (09:30)
--- NOTE | 2019-10-22 10:03 | NUR ---
rPatient transported to radiology via wheelchair, accompanied by optometric tech.
[2019-10-22 10:12] LABS: BASOPHILS # (AUTO) 0.1 K/uL (0.0-0.2); BASOPHILS % (AUTO) 0.6 % (0.0-2.0); EOSINOPHILS # (AUTO) 0.2 K/uL (0.0-0.4); EOSINOPHILS % (AUTO) 1.7 % (0.0-4.0); HEMATOCRIT 36.1 % (36-48); LYMPHOCYTES # (AUTO) 0.9 K/uL (1.0-5.5); LYMPHOCYTES % (AUTO) 9.3 % (20.5-51.5); MEAN CORPUSCULAR HEMOGLOBIN 29 pg (27-31); MEAN CORPUSCULAR HGB CONC 33 % (32-36); MEAN CORPUSCULAR VOLUME 86 fL (79.0-98.0); MONOCYTES # (AUTO) 0.7 K/uL (0.0-1.0); MONOCYTES % (AUTO) 7.3 % (1.7-9.3); NEUTROPHILS # (AUTO) 7.6 K/uL (1.8-7.7); NEUTROPHILS % (AUTO) 81.1 % (40.0-70.0); PLATELET COUNT (AUTO) 345 K/uL (130-430); RED CELL DISTRIBUTION WIDTH 14.6 % (9.0-15.0); WHITE BLOOD COUNT (AUTO) 9.4 K/uL (4.8-10.8)
--- NOTE | 2019-10-22 10:14 | NUR ---
Returns to ER department from radiology. Placed on security monitor, blood pressure machine and pulse oximeter.
[2019-10-22 10:17] LABS: CALCIUM 9.2 mg/dL (8.4-11.0); CREATININE 0.71 mg/dL (0.55-1.30)
[2019-10-22 10:18] LABS: BILIRUBIN,URINE NEGATIVE (NEGATIVE); BLOOD, URINE TRACE (NEGATIVE); CLARITY/URINE SLIGHTLY HAZY (CLEAR); COLOR,URINE YELLOW (YELLOW); GLUCOSE,URINE NEGATIVE (NEGATIVE); KETONES,URINE NEGATIVE (NEGATIVE); LEUKOCYTE ESTERASE ,URINE NEGATIVE (NEGATIVE); NITRITE, URINE NEGATIVE (NEGATIVE); PROTEIN URINE 2+ (NEGATIVE); UROBILINOGEN,URINE 0.2 (0.2-1.0)
[2019-10-22 10:23] LABS: ALBUMIN 2.5 g/dL (3.4-4.8); TOTAL BILIRUBIN 0.4 mg/dL (0.0-1.0)
[2019-10-22 10:31] LABS: BACTERIA,URINE MODERATE /HPF (None Seen); RBC,URINE 0-3 /HPF (0-3)
[2019-10-22 10:32] LABS: MUCUS,URINE 1+ /LPF (None Seen)
[2019-10-22] MEDS ORDERED: POTASSIUM CHLORIDE 20 MEQ TAB.PRT.SR PO ONE (10:45)
--- NOTE | 2019-10-22 11:39 | NUR ---
Patient sitting up in bed resting, denies any SOB. No signs or symptoms of acute distress noted.
--- NOTE | 2019-10-22 12:10 | NUR ---
Patient's colostomy bag changed due to leakage. Patient tolerated well.
--- NOTE | 2019-10-22 12:20 | NUR ---
Patient given written and verbal discharge instructions and verbalizes understanding. ER MD discussed with patient the results and treatment provided. Patient in stable condition. ID arm band removed. IV catheter removed intact and dressing applied, no active bleeding. Rx of Triamcinolone Acetonide given. Patient educated on pain management and to follow up with PMD. Pain Scale 0/10. Opportunity for questions provided and answered. Medication side effect fact sheet provided.
[2019-10-22 12:22] VITALS: BP_SYST 150
== END 2019-10-22 12:21 | disposition home or self-care (01) ==
LOC: SED 08:46
DX: K94.03 Colostomy malfunction (principal); E87.6 Hypokalemia; R21 Rash and other nonspecific skin eruption; E11.9 Type 2 diabetes mellitus without complications; Z88.1 Allergy status to other antibiotic agents; Z88.5 Allergy status to narcotic agent; Z88.8 Allergy status to other drugs, medicaments and biological substances; Z79.899 Other long term (current) drug therapy
CPT/HCPCS: 36415; 74176; 80053; 81000; 83605; 85025; 87040; 87086; 96374; 96375; 99284; J1885; J2405; J7030

== ENCOUNTER 2019-11-09 07:37 | Emergency (ER) | payer OTHER ==
[~2019-11-09] VITALS: Ht 167.6 cm; Wt 92.1 kg
[2019-11-09 07:37] VITALS: BP_SYST 162
--- NOTE | 2019-11-09 07:37 | NUR ---
Patient triaged and placed in waiting room. VSS and patient appears in no acute distress at this time. Accompanied by SELF, awaiting available bed, and MD notified of need for MSE.
[2019-11-09 08:25] LABS: BILIRUBIN,URINE NEGATIVE (NEGATIVE); BLOOD, URINE 2+ (NEGATIVE); CLARITY/URINE TURBID (CLEAR); COLOR,URINE ORANGE (YELLOW); GLUCOSE,URINE NEGATIVE (NEGATIVE); KETONES,URINE NEGATIVE (NEGATIVE); LEUKOCYTE ESTERASE ,URINE 3+ (NEGATIVE); NITRITE, URINE POSITIVE (NEGATIVE); PROTEIN URINE 2+ (NEGATIVE)
[2019-11-09 08:51] LABS: BACTERIA,URINE MANY /HPF (None Seen); MUCUS,URINE 1+ /LPF (None Seen); WBC,URINE >100 /HPF (0-3)
--- NOTE | 2019-11-09 09:05 | NUR ---
BROUGHT BACK [facility] BED AND DR MARK AT BEDSIDE FOR EVALUATION
--- NOTE | 2019-11-09 09:23 | NUR ---
EXAMINED BY DR MARK IN ROOM 7 TO SURGICAL SITE.
--- NOTE | 2019-11-09 09:27 | NUR ---
Patient given written and verbal discharge instructions and verbalizes understanding. ER MD discussed with patient the results and treatment provided. Patient in stable condition. ID arm band removed. Rx of BACTRIM given. Patient educated on pain management and to follow up with PMD. Pain Scale 0/10. Opportunity for questions provided and answered. Medication side effect fact sheet provided.
== END 2019-11-09 09:25 | disposition home or self-care (01) ==
LOC: SED 07:37
DX: N39.0 Urinary tract infection, site not specified (principal); E11.9 Type 2 diabetes mellitus without complications; Z88.1 Allergy status to other antibiotic agents; Z88.5 Allergy status to narcotic agent; Z88.8 Allergy status to other drugs, medicaments and biological substances; Z79.4 Long term (current) use of insulin
CPT/HCPCS: 81000-TC; 87086; 87186-TC; 99283